=== PATIENT | male | born 2000 | race Caucasian/White ===

== ENCOUNTER 2019-07-03 16:32 | Emergency (ER) | payer OTHER ==
[~2019-07-03] VITALS: Ht 172.7 cm; Wt 63.5 kg
--- OUTSIDE RECORDS SUMMARY | ~2019-07-03 | XMS | Encounter Summary ---
Demographics + + + | Address | [address] | | | [place] [address] | + + + | Preferred Language | Unknown | + + + | Marital Status | Single | + + + | Buddhist Affiliation | NON | + + + | Race | White | + + + | Ethnic Group | Not or | + + + Author + + + | Author | [facility] | + + + | Organization | [facility] | + + + | Address | Unknown | + + + | Phone | Unavailable | + + + Support + + + + + | Name | Relationship | Address | Phone | + + + + + | Tasha Jordan | ECON | [address] | Unavailable | | | | [place] | | | | | [address] | | + + + + + Care Team Providers + +------+ + | Care Marketing Automation Manager Name | Role | Phone | + +------+ + PCP | Unavailable | + +------+ + Encounter Details +--------+ + + + + | Date | Type | Department | Care Team | Description | +--------+ + + + + | 07/30/ | Procedure - | UNKNOWN DEPARTMENT | Other, Faculty | ECHO (TEAGAN or TTE) | | 1998 | | [address] [facility] | [phone] | | | | Transcribed | [address] | | | | | | [place], [place] | | | | | | [address] | | | +--------+ + + + + Social History + +-------+ +--------+------+ | Tobacco Use | Types | Packs/Day | Years | Date | | | | | Used | | + +-------+ +--------+------+ | Never Assessed | | | | | + +-------+ +--------+------+ + + + | Sex Assigned at | Date Recorded | | | | + + + | Not on file | | + + + + + + + | Job Start Date | Occupation | Industry | + + + + | Not on file | Not on file | Not on file | + + + + + + + + | Travel History | Travel Start | Travel End | + + + + + + | No recent travel history available. | + + documented as of this encounter Progress Notes Other, Faculty - 1998 12:00 AM PDTAssociated Order(s): TRANSTHORACIC ECHOCARDIOGRAM, ADULT DATE: 98 MED REC NO: [id number] NAME: Anneliese JORDAN ECHOCARDIOGRAPHY REPORT BIRTHDATE: [birth year] CARDIAC QUERY: PREMIE/EVALUATE FOR PULMONARY HYPERTENTION/PATENT DUCTUS UNIT: [facility] STUDY NO: [id number] TAPE NO. [id number] REF. MD: STACEY HERNANDEZ BP: 55/37 FRAME NO. [id number]:[id number]:[id number] TECH: AF WT: 2.77 M-MODE:MM 2-D MEASUREMENT LVID (D)14.5 (S) 8.5 %FS 41 LA 11.5 IVS (D) 2.5 (S)3.5 AO 9.0 LVPW (D) 2.5 (S)3.5 DOPPLER:M/S PW CW MMHG PW CW MMHG RVIT 0.85 LVIT 0.75 RVOT 0.50 LVOT 0.60 MPA 0.70 0.75 ASAO AP 0.85 TR 3.90 60 ASAO SSN 1.05 DSAO 1.05 2D & DOPPLER INTERPRETATION 1. NORMAL CARDIAC ANATOMY. 2. 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 3. MILD TRICUSPID REGURGITATION AND PULMONARY INSUFFICIENCY. 4. PATENT FORAMEN OVALE. 5. NORMAL LEFT VENTRICULAR SIZE AND FUNCTION. 6. LIMITED SUPRA STERNAL NOTCH VIEWS THEREFORE CANNOT RULE OUT PATENT DUCTUS ARTERIOSUS OR ANOMALOUS PULMONARY VENOUS RETURN. MB VELMA BALLESTEROS M.D. documented in this encou nter Plan of Treatment Not on filedocumented as of this encounter Procedures + +--------+ + + + | Procedure Name | Priori | Date/Time | Associated Diagnosis | Comments | | | ty | | | | + +--------+ + + + | TRANSTHORACIC | | 1998 | | Results for this | | ECHOCARDIOGRAM, | | 12:00 AM | | procedure are in the | | ADULT | | PDT | | results section. | + +--------+ + + + documented in this encounter Results TRANSTHORACIC ECHOCARDIOGRAM, ADULT (1998 12:00 AM PDT) + + | Procedure Note | + + | Other, Faculty - 1998 12:00 AM PDT | | DATE: 98 | | MED REC NO: [id number] | | NAME: Anneliese JORDAN | | ECHOCARDIOGRAPHY REPORT BIRTHDATE: [birth year] | | | | CARDIAC QUERY: PREMIE/EVALUATE FOR PULMONARY HYPERTENTION/PATENT DUCTUS | | UNIT: [facility] | | STUDY NO: [id number] TAPE [place]. [id number] | | REF. MD: STACEY HERNANDEZ | | BP: RA 55/37 | | | | FRAME NO. [id number]:[id number]:[id number] TECH: AF WT: 2.77 | | | | | | M-MODE:MM 2-D MEASUREMENT | | | | LVID (D)14.5 (S) 8.5 %FS 41 LA 11.5 | | IVS (D) 2.5 (S)3.5 AO 9.0 | | LVPW (D) 2.5 (S)3.5 | | | | DOPPLER:M/S PW CW MMHG PW CW MMHG | | | | RVIT 0.85 LVIT 0.75 | | RVOT 0.50 LVOT 0.60 | | MPA 0.70 0.75 ASAO AP 0.85 | | TR 3.90 60 ASAO SSN 1.05 | | DSAO 1.05 | | | | 2D & DOPPLER INTERPRETATION | | | | 1. NORMAL CARDIAC ANATOMY. | | | | 2. PULMONARY HYPERTENSION WITH TRICUSPID REGURGITATION VELOCITIES | | SUGGESTING RIGHT VENTRICULAR PRESSURE SUPRASYSTEMIC, FLATTENED VENTRICULAR | | SEPTUM. | | | | 3. MILD TRICUSPID REGURGITATION AND PULMONARY INSUFFICIENCY. | | | | 4. PATENT FORAMEN OVALE. | | | | 5. NORMAL LEFT VENTRICULAR SIZE AND FUNCTION. | | | | 6. LIMITED SUPRA STERNAL NOTCH VIEWS THEREFORE CANNOT RULE OUT PATENT | | DUCTUS ARTERIOSUS OR ANOMALOUS PULMONARY VENOUS RETURN. | | | | | | MB | | | | VELMA BALLESTEROS M.D. | | | | | | | + + documented in this encounter Visit Diagnoses Not on filedocumented in this encounter"
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
--- OUTSIDE RECORDS SUMMARY | ~2019-07-03 | XMS | Encounter Summary ---
Demographics + + + | Address | [address] | | | [place] [address] | + + + | Preferred Language | Unknown | + + + | Marital Status | Single | + + + | Zoroastrianism Affiliation | NON | + + + | Race | White | + + + | Ethnic Group | Not or | + + + Author + + + | Author | [facility] | + + + | Organization | [facility] | + + + | Address | Unknown | + + + | Phone | Unavailable | + + + Support + + + + + | Name | Relationship | Address | Phone | + + + + + | Tasha Keane | ECON | [address] | Unavailable | | | | [place] | | | | | [address] | | + + + + + Care Team Providers + +------+ + | Care Bevel Polisher Name | Role | Phone | + +------+ + PCP | Unavailable | + +------+ + Encounter Details +--------+ + + + + | Date | Type | Department | Care Team | Description | +--------+ + + + + | 08/10/ | Results | [facility] [address] | Catrina Haines MD | | | 1998 | Only | Ishan Resendez | [address] | | | | | Brad | Laya Gibson [facility] | | | | | [facility], | [place] [address] | | | | | [address] [place] [address] | [phone] | | | | | [place], [place] | | | | | | [address] | | | | | | [phone] | | | +--------+ + + + [...] + + documented as of this encounter Plan of Treatment Not on filedocumented as of this encounter Procedures + +--------+ + + + | Procedure Name | Priori | Date/Time | Associated Diagnosis | Comments | | | ty | | | | + +--------+ + + + | US HEAD | Routin | 1998 | | Results for this | | | e | 10:10 AM | | procedure are in the | | | | PDT | | results section. | + +--------+ + + + documented in this encounter Results US HEAD (1998 10:10 AM PDT) + + + + + + | Component | Value | Ref Range | Performed | Pathologist | | | | | At | Signature | + + + + + + | US HEAD | Radiologist 1: KALE, | | | | | | STACEY VENTURA M.D.HEAD | | | | | | ULTRASOUND: 98. | | | | | | Dictated 98 | | | | | | FINDINGS: The cranial | | | | | | structures appear | | | | | | normal. The ventricles | | | | | | aresymmetric in size | | | | | | and configuration. The | | | | | | lateral ventricles | | | | | | measure0.19 and 0.17 cm | | | | | | on the right and left | | | | | | sides respectively. | | | | | | There isno obvious | | | | | | germinal matrix | | | | | | hemorrhage. The | | | | | | surrounding | | | | | | brainparenchyma is | | | | | | normal. There is no | | | | | | apparent extra-axial | | | | | | fluidcollection. | | | | | | IMPRESSION: Normal | | | | | | cranial ultrasound. No | | | | | | sonographic evidence of | | | | | | a germinalmatrix | | | | | | hemorrhage. END OF | | | | | | IMPRESSION: | | | | + + + + + + + + | Specimen | + + | | + + + +---------+ + + | Performing | Address | City/State/Zipcode | Phone Number | | Organization | | | | + +---------+ + + | [facility] | | | | | RADIOLOGY | | | | + +---------+ + + documented in this encounter Visit Diagnoses Not on filedocumented in this encounter"
--- OUTSIDE RECORDS SUMMARY | ~2019-07-03 | XMS | Encounter Summary ---
Demographics + + + | Address | [address] | | | [place] [address] | + + + | Preferred Language | Unknown | + + + | Marital Status | Single | + + + | Protestant Affiliation | NON | + + + [...] [place], [place] | | | | | [address] | | + + + + + Care Team Providers + +------+ + | Care Furniture Finisher Apprentice Name | Role | Phone | + [...] [address] | | | | | | [place] [address] | | +--------+ + + + + [...] | | + +---------+ + + | [facility] DEPARTMENT OF | | | | | RADIOLOGY | | | | + +---------+ + + documented in this encounter Visit Diagnoses Not on filedocumented in this encounter"
--- OUTSIDE RECORDS SUMMARY | ~2019-07-03 | XMS | Encounter Summary ---
Demographics + + + | Address | [address] | | | [place] [address] | + + + | Preferred Language | Unknown | + + + | Marital Status | Single | + + + | Pentecostal Affiliation | NON | + + + [...] [place], [place] | | | | | [address] | | + + + + + Care Team Providers + +------+ + | Care Chainstitch Sewing Machine Operator Name | Role | Phone | + [...] as of this encounter Discharge Summaries Interface, Spotlight Operator In - 02/20/2006 5:10 AM PST [place] [address] [address] [facility] MEDICAL SUMMARY OF HOSPITALIZATION Med Rec No: [id number] Admission Date: 2000 Name: Zeus Kline Discharge Date: 1998 STAFF PHYSICIAN: Mack Crouch M.D. PRINCIPAL FINAL DIAGNOSIS: PRINCIPAL PROCEDURE: REASON FOR ADMISSION: Zeus Keane is a 22-day-old male infant admitted to [facility] for care of depression due to maternal abruption. Zeus was delivered at [facility] by emergent section for abruption to a 39-year-old 7, para 5-1-1-6, Eyak-Tristanian female at approximately 35-6/7 weeks gestational age [...] are unmarried but partnered, and reside in [place], [place]. The family has been followed closely by [facility], particularly regarding parenting concerns. Tasha's oldest [...] 1998, and repeated on 1998, also passed. [place] Metabolic Screen: The initial screen was sent [...] smoking in the home, carseat safety, the mvsr-qv-gubll program, the importance of regular followup for [facility], the hepatitis B immunization importance, and the mixing of 24 kcal/oz milk. Each of the parents did attend the [facility]'s Baby Care classes on the day of discharge. Discharge Follow-up: Followup will be through the [facility] the day after discharge, 1998, at 1330 hours. The patient were advised regarding this appointment. The fax number is . Bob Vaz., Mack Crouch M.D. N.N.PDebbie/C.N.S. SC/sole A FAX: [facility] cc: documente d in this encounter Plan of Treatment Not on filedocumented as of this encounter Visit Diagnoses Not on filedocumented in this encounter"
--- OUTSIDE RECORDS SUMMARY | ~2019-07-03 | XMS | Encounter Summary ---
Demographics + + + | Address | [address] | | | [place] [address] | + + + | Preferred Language | Unknown | + + + | Marital Status | Single | + + + | Restorationist Affiliation | NON | + + + [...] [place], [place] | | | | | [address] | | + + + + + Care Team Providers + +------+ + | Care Core Rescuer Name | Role | Phone | + +------+ + PCP | Unavailable | + +------+ + Encounter Details +--------+ + + + + | Date | Type | Department | Care Team | Description | +--------+ + + + + | 07/29/ | Results | | Other, Faculty | | | 1998 | Only | | [phone] | | +--------+ + + + + [...] + + | CHEST, 1 VIEW, | Routin | 1998 | | Results for this | | PORTABLE | e | 8:45 AM | | procedure are in the | | | | PDT | | results section. | + +--------+ + + + | CHEST, 1 VIEW, | Routin | 1998 | | Results for this | | PORTABLE | e | 8:44 AM | | procedure are in the | | | | PDT | | results section. | + +--------+ + + + | CHEST, 1 VIEW, | Routin | 1998 | | Results for this | | PORTABLE | e | 8:18 AM | | procedure are in the | | | | PDT | | results section. | + +--------+ + + + | CHEST, 1 VIEW, | Routin | 1998 | | Results for this | | PORTABLE | e | 9:03 AM | | procedure are in the | | | | PDT | | results section. | + +--------+ + + + | CHEST, 1 VIEW, | Routin | 1998 | | Results for this | | PORTABLE | e | 8:37 AM | | procedure are in the | | | | PDT | | results section. | + +--------+ + + + | CHEST, 1 VIEW, | Routin | 1998 | | Results for this | | PORTABLE | e | 7:45 AM | | procedure are in the | | | | PDT | | results section. | + +--------+ + + + | CHEST, 1 VIEW, | Urgent | 1998 | | Results for this | | PORTABLE | | 5:23 PM | | procedure are in the | | | | PDT | | results section. | + +--------+ + + + | CHEST, 1 VIEW, | Routin | 1998 | | Results for this | | PORTABLE | e | 12:41 PM | | procedure are in the | | | | PDT | | results section. | + +--------+ + + + | CHEST, 1 VIEW, | Routin | 1998 | | Results for this | | PORTABLE | e | 8:28 AM | | procedure are in the | | | | PDT | | results section. | + +--------+ + + + | CHEST, 1 VIEW, | Routin | 1998 | | Results for this | | PORTABLE | e | 10:15 AM | | procedure are in the | | | | PDT | | results section. | + +--------+ + + + documented in this encounter Results CHEST, 1 VIEW, PORTABLE (1998 8:45 AM PDT) + + + + + + | Component | Value | Ref Range | Performed | Pathologist | | | | | At | Signature | + + + + + + | CHEST, 1 | Radiologist 1: HE, | | | | | GAURAV, | ALICIA Stiles, | | | | | PORTABLE | M.D.-Radiologist 2: | | | | | | CHINO BILL, | | | | | | M.D.SINGLE VIEW OF THE | | | | | | CHEST: 98 at | | | | | | 0848 hours. Dictated: | | | | | | 98 COMPARISON: | | | | | | Comparison is made with | | | | | | prior study of 98 | | | | | | at 0846hours. FINDINGS: | | | | | | In the interim, the | | | | | | endotracheal tube has | | | | | | been removed. | | | | | | Theumbilical artery | | | | | | catheter tip is at T7-8. | | | | | | The cardiac | | | | | | configurationis | | | | | | unchanged. There has | | | | | | been a slight increase | | | | | | in the fineinterstitial | | | | | | reticular pattern. | | | | | | There are no | | | | | | consolidations,effusions | | | | | | , or pneumothorax. | | | | | | IMPRESSION: 1. | | | | | | Increase in fine | | | | | | reticular pattern, may | | | | | | represent | | | | | | increasedinterstitial | | | | | | edema, or symmetric | | | | | | pneumonia. | | | | | | END OF IMPRESSION: | | | | + + + + + + + + | Specimen | + + | | + + + + + | Narrative | Performed At | + + + | Ordered michelle HUANG | | + + + + +---------+ + + | Performing | Address | City/State/Zipcode | Phone Number | | Organization | | | | + +---------+ + + | [facility] OF | | | | | RADIOLOGY | | | | + +---------+ + + CHEST, 1 VIEW, PORTABLE (1998 8:44 AM PDT) + + + + + [...] at | | | | | | 0800 hours. Dictated: | | | | | | 98 COMPARISON: | | | | | | Comparison is made with | | | | | | prior study of 98 | | | | | | at 0815hours. FINDINGS: | | | | | | The lungs are well | | | | | | inflated, but because of | | | | | | lordoticposition, the | | | | | | degree of inflation is | | | | | | somewhat difficult to | | | | | | appreciate.There are | | | | | | unchanged bilateral fine | | | | | | reticular nodular | | | | | | interstitialopacities. | | | | | | The heart is unchanged | | | | | | and normal. The | | | | | | endotracheal | | | | | | tubeterminates at T2. | | | | | | The umbilical venous | | | | | | line terminates just at | | | | | | thecavoatrial junction. | | | | | | The umbilical arterial | | | | | | line is not seen on | | | | | | thisradiograph. The | | | | | | upper abdomen appears | | | | | | normal. IMPRESSION: | | | | | | Unchanged fine | | | | | | interstitial opacities | | | | | | consistent with | | | | | | eitherpersistent edema | | | | | | or infection. END OF | | | | | | IMPRESSION: | | | | + + + + + + + + | Specimen | + + | | + + + + + | Narrative | Performed At | + + + | Ordered by MIKAELA TURK | | + + + + +---------+ + + | Performing | Address | City/State/Zipcode | Phone Number | | Organization | | | | + +---------+ + + | [facility] DEPARTMENT | | | | | RADIOLOGY | | | | + +---------+ + + CHEST, 1 VIEW, PORTABLE (1998 8:18 AM PDT) + + + + + + | Component | Value | Ref Range | Performed | Pathologist | | | | | At | Signature | + + + + + + | CHEST, 1 | Radiologist 1: HE, | | | | | GAURAV, | ALICIA Stiles M.D.CHEST ONE | | | | | PORTABLE | VIEW: 98 | | | | | | Dictated: 98 | | | | | | FINDINGS: Compared to | | | | | | 98, the | | | | | | endotracheal tube has | | | | | | beenwithdrawn and now | | | | | | terminates at T3-4, | | | | | | above the jenny. The | | | | | | cardiacsilhouette is | | | | | | normal. The lungs are | | | | | | well inflated with fine | | | | | | linearinterstitial | | | | | | opacities, essentially | | | | | | unchanged. The | | | | | | umbilical venousline | | | | | | terminates in the right | | | | | | atrium, and umbilical | | | | | | arterial line atT4. | | | | | | IMPRESSION: Unchanged | | | | | | mild interstitial edema | | | | | | versus pneumonia. | | | | | | Satisfactory position of | | | | | | tubes and lines. END | | | | | | OF IMPRESSION: END OF | | | | | | IMPRESSION: | | | | + + + + + + + + | Specimen | + + | | + + + + + | Narrative | Performed At | + + + | Ordered by LOLIS HOLDER | | + + + + +---------+ + + | Performing | Address | City/State/Zipcode | Phone Number | | Organization | | | | + +---------+ + + | [facility] DEPARTMENT OF | | | | | RADIOLOGY | | | | + +---------+ + + CHEST, 1 VIEW, PORTABLE (1998 9:03 AM PDT) + + + + + + | Component | Value | Ref Range | Performed | Pathologist | | | | | At | Signature | + + + + + + | CHEST, 1 | Radiologist 1: HE, | | | | | VIEW, | ALICIA Stiles M.D. PORTABLE | | | | | PORTABLE | ONE VIEW OF THE CHEST: | | | | | | 98 at 0903 hours. | | | | | | Dictated 98 | | | | | | COMPARISON: Comparison | | | | | | is made with prior study | | | | | | of 98 at | | | | | | 0836hours. FINDINGS: The | | | | | | lungs are well | | | | | | inflated. The fine | | | | | | reticular | | | | | | granularopacities are | | | | | | unchanged, bilaterally. | | | | | | The endotracheal tube | | | | | | terminatesjust at the | | | | | | orifice of the right | | | | | | main stem bronchus. | | | | | | The umbilicalline | | | | | | terminates just over the | | | | | | right atrium. The | | | | | | cardiac silhouette | | | | | | andmediastinum are | | | | | | normal. No other changes | | | | | | are seen. IMPRESSION: | | | | | | Deeply positioned | | | | | | endotracheal tube, just | | | | | | at the right main | | | | | | stembronchus level. | | | | | | Called Dr Osorio at | | | | | | time of dictation. 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 END OF | | | | | | IMPRESSION: | | | | + + + + + + + + | Specimen | + + | | + + + + + | Narrative | Performed At | + + + | Ordered by FABRICIO SOORIO | | + + + + +---------+ + + | Performing | Address | City/State/Zipcode | Phone Number | | Organization | | | | + +---------+ + + | [facility] DEPARTMENT OF | | | | | RADIOLOGY | | | | + +---------+ + + CHEST, 1 VIEW, PORTABLE (1998 8:37 AM PDT) + + + + + + | Component | Value | Ref Range | Performed | Pathologist | | | | | At | Signature | + + + + + + | CHEST, 1 | Radiologist 1: HE, | | | | | VIEW, | ALICIA tSiles, | | | | | PORTABLE | MMerly.-Radiologist 2: | | | | | | ALICIA CUTLER M.D. | | | | | | ONE VIEW OF THE CHEST: | | | | | | 98 at 0837 hours. | | | | | | Dictated 98 | | | | | | COMPARISON: Comparison | | | | | | is made with prior study | | | | | | of 98. FINDINGS: | | | | | | Again noted are finely | | | | | | granular linear | | | | | | opacities in bothlungs. | | | | | | There is a slight | | | | | | decrease in the | | | | | | lucencies at the medial | | | | | | rightlung base. There is | | | | | | no evidence of | | | | | | pneumothorax. The | | | | | | cardiothymiccontours are | | | | | | unchanged. An | | | | | | endotracheal tube tip | | | | | | projects over | | | | | | thethoracic inlet. The | | | | | | umbilical venous | | | | | | catheter remains in | | | | | | place in theright | | | | | | atrium. IMPRESSION: 1. | | | | | | No significant | | | | | | interval change in the | | | | | | bilateral | | | | | | granularinterstitial | | | | | | opacities. This could | | | | | | reflect hyaline membrane | | | | | | disease orneonatal | | | | | | pneumonia. 2. Slight | | | | | | decrease in the tiny | | | | | | lucencies of the medial | | | | | | right lungbase likely | | | | | | reflecting a decrease in | | | | | | the interstitial | | | | | | emphysema. END OF | | | | | | IMPRESSION: | | | | + + + + + + + + | Specimen | + + | | + + + + + | Narrative | Performed At | + + + | Ordered by STACEY HERNANDEZ P.H.D., M.D. | | + + + + +---------+ + + | Performing | Address | City/State/Zipcode | Phone Number | | Organization | | | | + +---------+ + + | [facility]MENT OF | | | | | RADIOLOGY | | | | + +---------+ + + CHEST, 1 VIEW, PORTABLE (1998 7:45 AM PDT) + + + + + + | Component | Value | Ref Range | Performed | Pathologist | | | | | At | Signature | + + + + + + | CHEST, 1 | Radiologist 1: HE, | | | | | VIEW, | ALICIA Stiles M.D.SINGLE | | | | | PORTABLE | VIEW OF THE CHEST: | | | | | | 98 at 0745 hours. | | | | | | Dictated on | | | | | | 98 COMPARISON: | | | | | | Comparison is made with | | | | | | prior study of 98 | | | | | | at 1723hours. FINDINGS: | | | | | | The left hemithorax was | | | | | | clipped laterally. | | | | | | There areunchanged | | | | | | fine granular opacities | | | | | | with some area of bubbly | | | | | | change inthe right | | | | | | medial base. | | | | | | Endotracheal tube | | | | | | terminates at | | | | | | T2-3,umbilical venous | | | | | | line at T6-7 and | | | | | | umbilical artery line at | | | | | | the lowerborder of L3. | | | | | | IMPRESSION: 1. | | | | | | Unchanged bilateral | | | | | | fine granular opacities | | | | | | consistent with | | | | | | edemaand/or surfactant | | | | | | deficiency disease. 2. | | | | | | Some bubbly appearance | | | | | | in the right medial | | | | | | lung base may | | | | | | representearly pulmonary | | | | | | interstitial emphysema. | | | | | | END OF IMPRESSION: | | | | + + + + + + + + | Specimen | + + | | + + + + + | Narrative | Performed At | + + + | Ordered by STACEY HERNANDEZ P.H.D., M.D. | | + + + + +---------+ + + | Performing | Address | City/State/Zipcode | Phone Number | | Organization | | | | + +---------+ + + | [facility] DEPARTMENT OF | | | | | RADIOLOGY | | | | + +---------+ + + CHEST, 1 VIEW, PORTABLE (1998 5:23 PM PDT) + + + + + + | Component | Value | Ref Range | Performed | Pathologist | | | | | At | Signature | + + + + + + | CHEST, 1 | Radiologist 1: HE, | | | | | Sushma NOLASCO, | | | | | PORTABLE | M.D.-Radiologist 2: | | | | | | JORGE MONTIEL V., | | | | | | M.D.PORTABLE CHEST: | | | | | | 98 at 1723 | | | | | | hours. Dictated: | | | | | | 98 COMPARISON: | | | | | | Comparison is made with | | | | | | prior study of 98. | | | | | | FINDINGS: Hazy ground | | | | | | glass opacities are | | | | | | identified bilaterally. | | | | | | Theleft costophrenic | | | | | | angle is excluded from | | | | | | the image. More | | | | | | cysticlucencies are | | | | | | present at the medial | | | | | | right lung base. | | | | | | Endotrachealtube tip | | | | | | projects over T3. An | | | | | | umbilical artery | | | | | | catheter tip | | | | | | projectsover L3. | | | | | | Umbilical venous | | | | | | catheter is within the | | | | | | right atrium. 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 END OF | | | | | | IMPRESSION: | | | | + + + + + + + + | Specimen | + + | | + + + + + | Narrative | Performed At | + + + | Ordered by STACEY HERNANDEZ P.H.D., M.D. | | + + + + +---------+ + + | Performing | Address | City/State/Zipcode | Phone Number | | Organization | | | | + +---------+ + + | [facility] DEPARTMENT OF | | | | | RADIOLOGY | | | | + +---------+ + + CHEST, 1 VIEW, PORTABLE (1998 12:41 PM PDT) + + + + + + | Component | Value | Ref Range | Performed | Pathologist | | | | | At | Signature | + + + + + + | CHEST, 1 | Radiologist 1: KALE, | | | | | VIEW, | STACEY VENTURA, | | | | | PORTABLE | M.D.-Radiologist 2: | | | | | | JORGE MONTIEL V., | | | | | | M.D.SINGLE VIEW OF THE | | | | | | CHEST: 98. | | | | | | Dictated 98 | | | | | | COMPARISON: Comparison | | | | | | is made with prior | | | | | | study of earlier the | | | | | | sameday. FINDINGS: The | | | | | | endotracheal tube tip | | | | | | remains in place with | | | | | | the tipapproximately 1.5 | | | | | | vertebral bodies above | | | | | | the level of the | | | | | | jenny.Umbilical venous | | | | | | catheter remains in | | | | | | place with the tip in | | | | | | rightatrium. Hazy | | | | | | opacity is present | | | | | | bilaterally without | | | | | | significantchange. | | | | | | There is no evidence | | | | | | of pneumothorax or | | | | | | pleural effusion.The | | | | | | heart size is stable. | | | | | | The umbilical artery | | | | | | catheter remains inplace | | | | | | with the tip projecting | | | | | | at the level of L3. | | | | | | IMPRESSION: No | | | | | | significant change in | | | | | | the bilateral hazy air | | | | | | space opacities. END | | | | | | OF IMPRESSION: | | | | + + + + + + + + | Specimen | + + | | + + + + + | Narrative | Performed At | + + + | Ordered by STACEY HERNANDEZ P.H.D., M.D. | | + + + + +---------+ + + | Performing | Address | City/State/Zipcode | Phone Number | | Organization | | | | + +---------+ + + | [facility] DEPARTMENT OF | | | | | RADIOLOGY | | | | + +---------+ + + CHEST, 1 VIEW, PORTABLE (1998 8:28 AM PDT) + + + + + + | Component | Value | Ref Range | Performed | Pathologist | | | | | At | Signature | + + + + + + | CHEST, 1 | Radiologist 1: KALE, | | | | | VIEW, | STACEY VENTURA M.D.SU[facility] | | | | | PORTABLE | PORTABLE CHEST: | | | | | | 98 at 0828 | | | | | | hours. Dictated: | | | | | | 98 COMPARISON: | | | | | | Comparison is made with | | | | | | prior study of 98. | | | | | | FINDINGS: The | | | | | | endotracheal tube | | | | | | terminates 0.8 cm above | | | | | | the jenny.The umbilical | | | | | | venous catheter tip | | | | | | appears to be in the | | | | | | right atrium.The lung | | | | | | volumes remain | | | | | | diminished. There are | | | | | | coarse reticularmarkings | | | | | | evident bilaterally | | | | | | with increased opacity | | | | | | in the rightperihilar | | | | | | and left lower lobe | | | | | | distribution. This may | | | | | | representpulmonary edema | | | | | | or infectious | | | | | | process. Hyaline | | | | | | membrane disease is a | | | | | | consideration in the | | | | | | setting ofprematurity. | | | | | | Clinical correlation | | | | | | recommended. | | | | + + + + + + + + | Specimen | + + | | + + + + + | Narrative | Performed At | + + + | Ordered by STACEY HERNANDEZ P.H.D., M.D. | | + + + + +---------+ + + | Performing | Address | City/State/Zipcode | Phone Number | | Organization | | | | + +---------+ + + | [facility] DEPARTMENT OF | | | | | RADIOLOGY | | | | + +---------+ + + CHEST, 1 VIEW, PORTABLE (1998 10:15 AM PDT) + + + + + + | Component | Value | Ref Range | Performed | Pathologist | | | | | At | Signature | + + + + + + | CHEST, 1 | Radiologist 1: HE, | | | | | GAURAV, | KAROL KENDRICK, | | | | | PORTABLE | BABY BOY | | | | | | | | | | | | THE | | | | | | FINDINGS AND | | | | | | INTERPRETATIONS OF | | | | | | THE:CHEST 1 PORTABLE, | | | | | | ACC# [id number], DONE ON | | | | | | 29-JUL-98 AT 10:15HAVE | | | | | | BEEN REPORTED ON | | | | | | THE:CHEST 1 PORTABLE, | | | | | | ACC# [id number], DONE ON | | | | | | 29-JUL-98 AT 08:51. | | | | + + + + + + + + | Specimen | + + | | + + + + + | Narrative | Performed At | + + + | Ordered by STACEY HERNANDEZ P.H.D., M.D. | | + + + + +---------+ + + | Performing | Address | City/State/Zipcode | Phone Number | | Organization | | | | + +---------+ + + | [facility]PARTMENT OF | | | | | RADIOLOGY | | | | + +---------+ + + documented in this encounter Visit Diagnoses Not on filedocumented in this encounter"
--- OUTSIDE RECORDS SUMMARY | ~2019-07-03 | XMS | Clinical Summary ---
Demographics + + + | Address | [address] | | | [place] [address] | + + + | Preferred Language [...] [place], [place] | | | | | [address] | | + + + + + Care Team Providers + +------+ + | Care Wood Turning Lathe Operator Name | Role | Phone | + +------+ + PCP | Unavailable | + +------+ + Source Comments [facility] is fully live on both [facility] Ambulatory and [facility] InPatient.[facility] Allergies Not on File Medications [...]
--- OUTSIDE RECORDS SUMMARY | ~2019-07-03 | XMS | Encounter Summary ---
Demographics + + + | Address | [address] | | | [place] [address] | + + + | Preferred Language | Unknown | + + + | Marital Status | Single | + + + | Hinduism Affiliation | NON | + + + | Race | White | + + + | Ethnic Group | Not or | + + + Author + + + | Author | [facility] | + + + | Organization | [facility] [...] [place] | | | | | [address] | | + + + + + Care Team Providers + +------+ + | Care Uc Architect Name | Role | Phone | + +------+ + PCP | Unavailable | + +------+ + Encounter Details +--------+ + + + + | Date | Type | Department | Care Team | Description | +--------+ + + + + | 08/10/ | Results | [facility] [address] | Catrina Haines MD | | | 1998 | Only | Ishan Resendez | [address] | | | | | Brad | Laya Gibson [facility] | | | | | [facility], | [place] [address] | | | | | [address] [place] [address] | [phone] | | | | | [place], [place] | | | | | | [address] | | | | | | [phone] | | | +--------+ + + + [...] | | + +---------+ + + | [facility] DEPARTMENT OF | | | | | RADIOLOGY | | | | + +---------+ + + documented in this encounter Visit Diagnoses Not on filedocumented in this encounter"
--- OUTSIDE RECORDS SUMMARY | ~2019-07-03 | XMS | Encounter Summary ---
Demographics + + + | Address | [address] | | | [place] [address] | + + + | Preferred Language | Unknown | + + + | Marital Status | Single | + + + | Adventism Affiliation | NON | + + + | Race | White | + + + | Ethnic Group | Not or | + + + Author + + + | Author | [facility] | + + + | Organization | [facility] | + + + | Address | Unknown | + + + | Phone | Unavailable | + + + Support + + + + + | Name | Relationship | Address | Phone | + + + + + | Tasha Keane | ECON | [address] | Unavailable | | | | [place] | | | | | [address] | | + + + + + Care Team Providers + +------+ + | Care [employer] Name | Role | Phone | + [...] [id number] | | | | | | [place], [place] | | | | | | [address] | | | | | | [phone] | | | +--------+ + + + [...] + + + + | SEND-OUT | [id number]. | | | | | DATE | | | | | + + + + + + | KIT NO. | [id number]. | | | | + + + + + + + + | Specimen | + + | | + + + + + + + | Performing | Address | City/State/Zipcode | Phone Number | | Organization | | | | + + + + + | [facility] | [address] | [place] [address] | | | PATHOLOGY | [address] [...] | + + + + + | [facility] | [address] | [place] [address] | | | PATHOLOGY | [address] [...] | + + + + + | [facility] | [address] | [place] [address] | | | PATHOLOGY | [address] [...] | + + + + + | [facility] | [address] | [place] [address] | | | PATHOLOGY | [address] [...] | + + + + + | [facility] | [address] | [place] [address] | | | PATHOLOGY | [address] [...] | + + + + + | [facility] | [address] | [place] [address] | | | PATHOLOGY | [address] [...] | + + + + + | [facility] | [address] | [place], [place] [address] | | | PATHOLOGY | [address] [...] | + + + + + | [facility] | [address] | [place] [address] | | | PATHOLOGY | [address] [...] | + + + + + | [facility] | [address] | [place] [address] | | | PATHOLOGY | [address] [...] | + + + + + | [facility] | [address] | [place] [address] | | | PATHOLOGY | [address] [...] | + + + + + | [facility] | [address] | [place] [address] | | | PATHOLOGY | [address] [...] | + + + + + | [facility] | [address] | [place] [address] | | | PATHOLOGY | [address] [...] | + + + + + | [facility] | [address] | [place] [address] | | | PATHOLOGY | [address] [...] | + + + + + | [facility] | [address] | [place] [address] | | | PATHOLOGY | [address] [...] | + + + + + | [facility] | [address] | [place] [address] | | | PATHOLOGY | [address] [...] | + + + + + | [facility] | [address] | [place] [address] | | | PATHOLOGY | [address] [...] | + + + + + | [facility] | [address] | [place] [address] | | | PATHOLOGY | [address] [...] | + + + + + | [facility] | [address] | [place] [address] | | | PATHOLOGY | [address] [...] | + + + + + | [facility] | [address] | [place] [address] | | | PATHOLOGY | [address] [...] | + + + + + | [facility] | [address] | [place] [address] | | | PATHOLOGY | [address] [...] | + + + + + | [facility] | [address] | [place] [address] | | | PATHOLOGY | [address] [...] | + + + + + | [facility] | [address] | [place] [address] | | | PATHOLOGY | [address] [...] | + + + + + | [facility] | [address] | [place] [address] | | | PATHOLOGY | [address] [...] | + + + + + | [facility] | [address] | [place] [address] | | | PATHOLOGY | [address] [...] | + + + + + | [facility] | [address] | [place] [address] | | | PATHOLOGY | [address] [...] | + + + + + | [facility] | [address] | [place] [address] | | | PATHOLOGY | [address] [...] | + + + + + | [facility] | [address] | [place] [address] | | | PATHOLOGY | [address] [...] | + + + + + | [facility] | [address] | [place] [address] | | | PATHOLOGY | [address] [...] | + + + + + | [facility] | [address] | [place] [address] | | | PATHOLOGY | [address] [...] | + + + + + | [facility] | [address] | [place] [address] | | | PATHOLOGY | [address] [...] | + + + + + | [facility] | [address] | [place] [address] | | | PATHOLOGY | [address] [...] | + + + + + | [facility] | [address] | [place] [address] | | | PATHOLOGY | [address] [...] + + + + | SEND-OUT | [id number]. | | | | | DATE | | | | | + + + + + + | KIT NO. | [id number]. | | | | + + + + + + + + | Specimen | + + | | + + + + + + + | Performing | Address | City/State/Zipcode | Phone Number | | Organization | | | | + + + + + | [facility] | [address] | [place] [address] | | | PATHOLOGY | [address] [...] | + + + + + | [facility] | [address] | [place] [address] | | | PATHOLOGY | [address] [...] | + + + + + | [facility] | [address] | [place] [address] | | | PATHOLOGY | [address] [...] | + + + + + | [facility] | [address] | [place] [address] | | | PATHOLOGY | [address] [...] | + + + + + | [facility] | [address] | [place] [address] | | | PATHOLOGY | [address] [...] | + + + + + | [facility] | [address] | [place] [address] | | | PATHOLOGY | [address] [...] | + + + + + | [facility] | [address] | [place] [address] | | | PATHOLOGY | [address] [...] | + + + + + | [facility] | [address] | [place] [address] | | | PATHOLOGY | [address] [...] | + + + + + | [facility] | [address] | [place] [address] | | | PATHOLOGY | [address] [...] | + + + + + | [facility] | [address] | [place] [address] | | | PATHOLOGY | [address] [...] | + + + + + | [facility] | [address] | [place] [address] | | | PATHOLOGY | [address] [...] | + + + + + | [facility] | [address] | [place] [address] | | | PATHOLOGY | [address] [...] | + + + + + | [facility] | [address] | [place] [address] | | | PATHOLOGY | [address] [...] | + + + + + | [facility] | [address] | [place] [address] | | | PATHOLOGY | [address] [...] OF | [address] | [place] [address] | | | PATHOLOGY | [address] [...] | + + + + + | [facility] | [address] | [place] [address] | | | PATHOLOGY | [address] [...] | + + + + + | [facility] | [address] | [place] [address] | | | PATHOLOGY | [address] [...] DEPARTMENT OF | [address] | [place] [address] | | | PATHOLOGY | [address] [...] | + + + + + | [facility] | [address] | [place] [address] | | | PATHOLOGY | [address] [...] | + + + + + | [facility] | [address] | [place] [address] | | | PATHOLOGY | [address] [...] | + + + + + | [facility] | [address] | [place] [address] | | | PATHOLOGY | [address] [...] | + + + + + | [facility] | [address] | [place] [address] | | | PATHOLOGY | [address] [...] | + + + + + | [facility] | [address] | [place] [address] | | | PATHOLOGY | [address] [...] | + + + + + | [facility] | [address] | [place] [address] | | | PATHOLOGY | [address] [...] | + + + + + | [facility] | [address] | [place] [address] | | | PATHOLOGY | [address] [...] | + + + + + | [facility] | [address] | [place] [address] | | | PATHOLOGY | [address] [...] | + + + + + | [facility] | [address] | [place] [address] | | | PATHOLOGY | [address] [...] | + + + + + | [facility] | [address] | [place] [address] | | | PATHOLOGY | [address] [...] | + + + + + | [facility] | [address] | [place] [address] | | | PATHOLOGY | [address] [...] | + + + + + | [facility] | [address] | [place] [address] | | | PATHOLOGY | [address] [...] | + + + + + | [facility] | [address] | [place] [address] | | | PATHOLOGY | [address] [...] | + + + + + | [facility] | [address] | [place] [address] | | | PATHOLOGY | [address] [...] | + + + + + | [facility] | [address] | [place] [address] | | | PATHOLOGY | [address] [...] | + + + + + | [facility] | [address] | [place] [address] | | | PATHOLOGY | [address] [...] | + + + + + | [facility] | [address] | [place] [address] | | | PATHOLOGY | [address] [...] | + + + + + | [facility] | [address] | [place] [address] | | | PATHOLOGY | [address] | | | + + + [...] | + + + + + | [facility] | [address] | [place] [address] | | | PATHOLOGY | [address] [...] | + + + + + | [facility] | [address] | [place] [address] | | | PATHOLOGY | [address] [...] | + + + + + | [facility] | [address] | [place] [address] | | | PATHOLOGY | [address] [...] | + + + + + | [facility] | [address] | [place] [address] | | | PATHOLOGY | [address] [...] | + + + + + | [facility] | [address] | [place] [address] | | | PATHOLOGY | [address] [...] | + + + + + | [facility] | [address] | [place] [address] | | | PATHOLOGY | [address] [...] Re | | | | | | [address] | | | | + + + + + + + + | Specimen | + + | | + + + + + + + | Performing | Address | City/State/Zipcode | Phone Number | | Organization | | | | + + + + + | [facility] | [address] | [place] [address] | | | PATHOLOGY | [address] [...] | + + + + + | [facility] | [address] | [place] [address] | | | PATHOLOGY | [address] [...] | + + + + + | [facility] | [address] | [place] [address] | | | PATHOLOGY | [address] [...] | + + + + + | [facility] | [address] | [place] [address] | | | PATHOLOGY | [address] | | | + + + + + documented in this encounter Visit Diagnoses Not on filedocumented in this encounter
--- OUTSIDE RECORDS SUMMARY | ~2019-07-03 | XMS | Encounter Summary ---
Demographics + + + | Address | [address] | | | [place] [address] | + + + | Preferred Language | Unknown | + + + | Marital Status | Single | + + + | Judaism Affiliation | NON | + + + [...] [place], [place] | | | | | [address] | | + + + + + Care Team Providers + +------+ + | Care Chemical Mixer Name | Role | Phone | + +------+ + PCP | Unavailable | + +------+ + Encounter Details +--------+ + + + + | Date | Type | Department | Care Team | Description | +--------+ + + + + | 07/29/ | Results | | Other, Faculty | | | 1998 | Only | | [phone] | | +--------+ + + + + [...] | | + +---------+ + + | [facility] | | | | | [...] | | + +---------+ + + | [facility] OF | | | | [...] | | + +---------+ + + | [facility] OF | | | | [...] | | | | | | ALICIA CTULER M.D. | | | | | | [...] + + + | Ordered by STACEY HRENANDEZ P.H.D., M.D. | | + + + + +---------+ + + | Performing | Address | City/State/Zipcode | Phone Number | | Organization | | | | + +---------+ + + | [facility] | | | | [...] | | + +---------+ + + | [facility] | | | | [...] | | + +---------+ + + | [facility] | | | | [...] | | + +---------+ + + | [facility] OF | | | | [...] | | | | | | ACC# [id number], DONE ON | | | | | | 29-JUL-98 AT 10:15HAVE | | | | | | BEEN REPORTED ON | | | | | | THE:CHEST 1 PORTABLE, | | | | | | ACC# [id number], DONE ON | | | | | [...]
--- OUTSIDE RECORDS SUMMARY | ~2019-07-03 | XMS | Clinical Summary ---
Demographics + + + | Address | [address] | | | [place] [address] | + + + | Preferred Language | Unknown | + + + | Marital Status | Single | + + + | Bahai Affiliation | NON | + + + [...] [place], [place] | | | | | [address] | | + + + + + Care Team Providers + +------+ + | Care Real Estate Professional Name | Role | Phone | + +------+ + PCP | Unavailable | + +------+ + Source Comments YOUNG is fully live on both [facility] Ambulatory and [facility] InPatient.[facility] Allergies Not on File Medications [...]
--- OUTSIDE RECORDS SUMMARY | ~2019-07-03 | XMS | Encounter Summary ---
Demographics + + + | Address | [address] | | | [place] [address] | + + + | Preferred Language | Unknown | + + + | Marital Status | Single | + + + | Congregational Affiliation | NON | + + + [...] [place], [place] | | | | | [address] | | + + + + + Care Team Providers + +------+ + | Care Director Of Premium Seat Sales Name | Role | Phone | + [...] [address] | | | | | | [place] [address] | | +--------+ + + + + [...] | | + +---------+ + + | [facility] DEPARTMENT OF | | | | | RADIOLOGY | | | | + +---------+ + + documented in this encounter Visit Diagnoses Not on filedocumented in this encounter"
--- OUTSIDE RECORDS SUMMARY | ~2019-07-03 | XMS | Encounter Summary ---
Demographics + + + | Address | [address] | | | [place] [address] | + + + | Preferred Language | Unknown | + + + | Marital Status | Single | + + + | Scientology Affiliation | NON | + + + | Race | White | + + + | Ethnic Group | Not or | + + + Author + + + | Author | [facility] | + + + | Organization | [facility] | + + + | Address | Unknown | + + + | Phone | Unavailable | + + + Support + + + + + | Name | Relationship | Address | Phone | + + + + + | Tasha Jordan | ECON | [address] | Unavailable | | | | [place] | | | | | [address] | | + + + + + Care Team Providers + +------+ + | Care Cosmetic Sales Assistant Name | Role | Phone | + +------+ + PCP | Unavailable | + +------+ + Encounter Details +--------+ + + + + | Date | Type | Department | Care Team | Description | +--------+ + + + + | 07/30/ | Procedure - | UNKNOWN DEPARTMENT | Other, Faculty | ECHO (TEAGAN or TTE) | | 1998 | | [address] [facility] | [phone] | | | | Transcribed | [address] | | | | | | [place], [place] | | | | | | [address] | | | +--------+ + + + [...] ECHOCARDIOGRAM, ADULT DATE: [birth year] MED REC NO: [id number] NAME: Anneliese JORDAN ECHOCARDIOGRAPHY REPORT BIRTHDATE: [birth year] CARDIAC QUERY: PREMIE/EVALUATE FOR PULMONARY HYPERTENTION/PATENT DUCTUS UNIT: [facility] STUDY NO: [id number] TAPE NO. [id number] REF. [...] DATE: [birth year] | | MED REC NO: [id number] | | NAME: Anneliese JORDAN | | ECHOCARDIOGRAPHY REPORT BIRTHDATE: [birth year] | | | | CARDIAC QUERY: PREMIE/EVALUATE FOR PULMONARY HYPERTENTION/PATENT DUCTUS | | UNIT: [facility] | | STUDY NO: [id number] TAPE NO. [...]
--- OUTSIDE RECORDS SUMMARY | ~2019-07-03 | XMS | Encounter Summary ---
Demographics + + + | Address | [address] | | | [place] [address] | + + + | Preferred Language | Unknown | + + + | Marital Status | Single | + + + | Judaism Affiliation | NON | + + + | Race | White | + + + | Ethnic Group | Not or | + + + Author + + + | Author | [facility] | + + + | Organization | [facility] | + + + | Address | Unknown | + + + | Phone | Unavailable | + + + Support + + + + + | Name | Relationship | Address | Phone | + + + + + | Tasha Keane | ECON | [address] | Unavailable | | | | [place] | | | | | [address] | | + + + + + Care Team Providers + +------+ + | Care Shot Peen Operator Name | Role | Phone | [...] [id number] | | | | | | [place], [place] | | | | | | [address] | | | | | | [phone] | | | +--------+ + + + [...] + + + + | SEND-OUT | [id number]. | | | | | DATE | | | | | + + + + + + | KIT NO. | [id number]. | | | | + + + + + + + + | Specimen | + + | | + + + + + + + | Performing | Address | City/State/Zipcode | Phone Number | | Organization | | | | + + + + + | [facility] | [address] | [place] [address] | | | PATHOLOGY | [address] [...] | + + + + + | [facility] | [address] | [place] [address] | | | PATHOLOGY | [address] [...] | + + + + + | [facility] | [address] | [place] [address] | | | PATHOLOGY | [address] [...] | + + + + + | [facility] | [address] | [place] [address] | | | PATHOLOGY | [address] [...] | + + + + + | [facility] | [address] | [place] [address] | | | PATHOLOGY | [address] [...] | + + + + + | [facility] | [address] | [place] [address] | | | PATHOLOGY | [address] [...] | + + + + + | [facility] | [address] | [place], [place] [address] | | | PATHOLOGY | [address] [...] | + + + + + | [facility] | [address] | [place] [address] | | | PATHOLOGY | [address] [...] | + + + + + | [facility] | [address] | [place] [address] | | | PATHOLOGY | [address] [...] | + + + + + | [facility] | [address] | [place] [address] | | | PATHOLOGY | [address] [...] | + + + + + | [facility] | [address] | [place] [address] | | | PATHOLOGY | [address] [...] | + + + + + | [facility] | [address] | [place] [address] | | | PATHOLOGY | [address] [...] | + + + + + | [facility] | [address] | [place] [address] | | | PATHOLOGY | [address] [...] | + + + + + | [facility] | [address] | [place] [address] | | | PATHOLOGY | [address] [...] | + + + + + | [facility] | [address] | [place] [address] | | | PATHOLOGY | [address] [...] | + + + + + | [facility] | [address] | [place] [address] | | | PATHOLOGY | [address] [...] | + + + + + | [facility] | [address] | [place] [address] | | | PATHOLOGY | [address] [...] | + + + + + | [facility] | [address] | [place] [address] | | | PATHOLOGY | [address] [...] | + + + + + | [facility] | [address] | [place] [address] | | | PATHOLOGY | [address] [...] | + + + + + | [facility] | [address] | [place] [address] | | | PATHOLOGY | [address] [...] | + + + + + | [facility] | [address] | [place] [address] | | | PATHOLOGY | [address] [...] | + + + + + | [facility] | [address] | [place] [address] | | | PATHOLOGY | [address] [...] | + + + + + | [facility] | [address] | [place] [address] | | | PATHOLOGY | [address] [...] | + + + + + | [facility] | [address] | [place] [address] | | | PATHOLOGY | [address] [...] | + + + + + | [facility] | [address] | [place] [address] | | | PATHOLOGY | [address] [...] | + + + + + | [facility] | [address] | [place] [address] | | | PATHOLOGY | [address] [...] | + + + + + | [facility] | [address] | [place] [address] | | | PATHOLOGY | [address] [...] | + + + + + | [facility] | [address] | [place] [address] | | | PATHOLOGY | [address] [...] | + + + + + | [facility] | [address] | [place] [address] | | | PATHOLOGY | [address] [...] | + + + + + | [facility] | [address] | [place] [address] | | | PATHOLOGY | [address] [...] | + + + + + | [facility] | [address] | [place] [address] | | | PATHOLOGY | [address] [...] | + + + + + | [facility] | [address] | [place] [address] | | | PATHOLOGY | [address] [...] + + + + | SEND-OUT | 03464. | | | | | DATE | | | | | + + + + + + | KIT NO. | [id number]. | | | | + + + + + + + + | Specimen | + + | | + + + + + + + | Performing | Address | City/State/Zipcode | Phone Number | | Organization | | | | + + + + + | [facility] | [address] | [place] [address] | | | PATHOLOGY | [address] [...] | + + + + + | [facility] | [address] | [place] [address] | | | PATHOLOGY | [address] [...] | + + + + + | [facility] | [address] | [place] [address] | | | PATHOLOGY | [address] [...] | + + + + + | [facility] | [address] | [place] [address] | | | PATHOLOGY | [address] [...] | + + + + + | [facility] | [address] | [place] [address] | | | PATHOLOGY | [address] [...] | + + + + + | [facility] | [address] | [place] [address] | | | PATHOLOGY | [address] [...] | + + + + + | [facility] | [address] | [place] [address] | | | PATHOLOGY | [address] [...] | + + + + + | [facility] | [address] | [place] [address] | | | PATHOLOGY | [address] [...] | + + + + + | [facility] | [address] | [place] [address] | | | PATHOLOGY | [address] [...] | + + + + + | [facility] | [address] | [place] [address] | | | PATHOLOGY | [address] [...] | + + + + + | [facility] | [address] | [place] [address] | | | PATHOLOGY | [address] [...] | + + + + + | [facility] | [address] | [place] [address] | | | PATHOLOGY | [address] [...] | + + + + + | [facility] | [address] | [place] [address] | | | PATHOLOGY | [address] [...] | + + + + + | [facility] | [address] | [place] [address] | | | PATHOLOGY | [address] [...] OF | [address] | [place] [address] | | | PATHOLOGY | [address] [...] | + + + + + | [facility] | [address] | [place] [address] | | | PATHOLOGY | [address] [...] | + + + + + | [facility] | [address] | [place] [address] | | | PATHOLOGY | [address] [...] DEPARTMENT OF | [address] | [place] [address] | | | PATHOLOGY | [address] [...] | + + + + + | [facility] | [address] | [place] [address] | | | PATHOLOGY | [address] [...] | + + + + + | [facility] | [address] | [place] [address] | | | PATHOLOGY | [address] [...] | + + + + + | [facility] | [address] | [place] [address] | | | PATHOLOGY | [address] [...] | + + + + + | [facility] | [address] | [place] [address] | | | PATHOLOGY | [address] [...] | + + + + + | [facility] | [address] | [place] [address] | | | PATHOLOGY | [address] [...] | + + + + + | [facility] | [address] | [place] [address] | | | PATHOLOGY | [address] [...] | + + + + + | [facility] | [address] | [place] [address] | | | PATHOLOGY | [address] [...] | + + + + + | [facility] | [address] | [place] [address] | | | PATHOLOGY | [address] [...] | + + + + + | [facility] | [address] | [place] [address] | | | PATHOLOGY | [address] [...] | + + + + + | [facility] | [address] | [place] [address] | | | PATHOLOGY | [address] [...] | + + + + + | [facility] | [address] | [place] [address] | | | PATHOLOGY | [address] [...] | + + + + + | [facility] | [address] | [place] [address] | | | PATHOLOGY | [address] [...] | + + + + + | [facility] | [address] | [place] [address] | | | PATHOLOGY | [address] [...] | + + + + + | [facility] | [address] | [place] [address] | | | PATHOLOGY | [address] [...] | + + + + + | [facility] | [address] | [place] [address] | | | PATHOLOGY | [address] [...] | + + + + + | [facility] | [address] | [place] [address] | | | PATHOLOGY | [address] [...] | + + + + + | [facility] | [address] | [place] [address] | | | PATHOLOGY | [address] [...] | + + + + + | [facility] | [address] | [place] [address] | | | PATHOLOGY | [address] [...] | + + + + + | [facility] | [address] | [place] [address] | | | PATHOLOGY | [address] [...] | + + + + + | [facility] | [address] | [place] [address] | | | PATHOLOGY | [address] [...] | + + + + + | [facility] | [address] | [place] [address] | | | PATHOLOGY | [address] [...] | + + + + + | [facility] | [address] | [place] [address] | | | PATHOLOGY | [address] [...] | + + + + + | [facility] | [address] | [place] [address] | | | PATHOLOGY | [address] [...] | + + + + + | [facility] | [address] | [place] [address] | | | PATHOLOGY | [address] [...] Re | | | | | | [id number] | | | | + + + + + + + + | Specimen | + + | | + + + + + + + | Performing | Address | City/State/Zipcode | Phone Number | | Organization | | | | + + + + + | [facility] | [address] | [place] [address] | | | PATHOLOGY | [address] [...] | + + + + + | [facility] | [address] | [place] [address] | | | PATHOLOGY | [address] [...] | + + + + + | [facility] | [address] | [place] [address] | | | PATHOLOGY | [address] [...] | + + + + + | [facility] | [address] | [place] [address] | | | PATHOLOGY | [address] | | | + + + + + documented in this encounter Visit Diagnoses Not on filedocumented in this encounter
== END 2019-07-03 17:09 | disposition home or self-care (01) ==
LOC: ED 16:32
DX: F22 Delusional disorders (principal); R20.2 Paresthesia of skin; F17.200 Nicotine dependence, unspecified, uncomplicated
CPT/HCPCS: 99283

== ENCOUNTER 2019-07-04 11:59 | Emergency (ER) | payer OTHER ==
[~2019-07-04] VITALS: Ht 172.7 cm; Wt 63.5 kg
--- OUTSIDE RECORDS SUMMARY | ~2019-07-04 | XMS | Encounter Summary ---
Demographics + + + | Address | [address] | | | [place] [address] | + + + | Preferred Language | Unknown | + + + | Marital Status | Single | + + + | Mormon Affiliation | NON | + + + | Race | White | + + + | Ethnic Group | Not or | + + + Author + + + | Author | [facility] | + + + | Organization | [facility] | + + + | Address | Unknown | + + + | Phone | Unavailable | + + + Support + + + + + | Name | Relationship | Address | Phone | + + + + + | Tasha Jordan | ECON | [address] | Unavailable | | | | [place] | | | | | [address] | | + + + + + Care Team Providers + +------+ + | Care History Tutor Name | Role | Phone | + +------+ + PCP | Unavailable | + +------+ + Encounter Details +--------+ + + + + | Date | Type | Department | Care Team | Description | +--------+ + + + + | 07/30/ | Procedure - | UNKNOWN DEPARTMENT | Other, Faculty | ECHO (TEAGAN or TTE) | | 1998 | | [address] [facility] | [phone] | | | | Transcribed | [address] | | | | | | [place], [place] | | | | | | [address] | | | +--------+ + + + [...] ECHOCARDIOGRAM, ADULT DATE: 98 MED REC NO: [id number] NAME: Anneliese JORDAN ECHOCARDIOGRAPHY REPORT BIRTHDATE: [birth year] CARDIAC QUERY: PREMIE/EVALUATE FOR PULMONARY HYPERTENTION/PATENT DUCTUS UNIT: [facility] STUDY NO: [id number] TAPE NO. [id number] REF. [...] DATE: [birth year] | | MED REC NO: [id number] | | NAME: Anneliese JORDAN | | ECHOCARDIOGRAPHY REPORT BIRTHDATE: [birth year] | | | | CARDIAC QUERY: PREMIE/EVALUATE FOR PULMONARY HYPERTENTION/PATENT DUCTUS | | UNIT: [facility] | | STUDY NO: [id number] TAPE NO. [...]
--- OUTSIDE RECORDS SUMMARY | ~2019-07-04 | XMS | Encounter Summary ---
Demographics + + + | Address | [address] | | | [place] [address] | + + + | Preferred Language | Unknown | + + + | Marital Status | Single | + + + | Advent Affiliation | NON | + + + [...] [place], [place] | | | | | [address] | | + + + + + Care Team Providers + +------+ + | Care Personal Driver Name | Role | Phone | + [...] as of this encounter Discharge Summaries Interface, Motor Coach Operator In - 02/20/2006 5:10 AM PST [place] [address] [address] [facility] MEDICAL SUMMARY OF HOSPITALIZATION Med Rec No: [id number] Admission Date: 2000 Name: Zeus Kline Discharge Date: 2000 STAFF PHYSICIAN: Mack Crouch M.D. PRINCIPAL FINAL DIAGNOSIS: PRINCIPAL PROCEDURE: REASON FOR ADMISSION: Zeus Keane is a 22-day-old male infant admitted to [facility] for care of depression due to maternal abruption. Zeus was delivered at [facility] by emergent section for abruption to a 39-year-old 7, para 5-1-1-6, [place] female at approximately 35-6/7 weeks gestational age [...] Rule Out Congenital Heart Disease: Due to Zesu's cardiovascular and respiratory compromise, an echocardiogram was done to rule out congenital heart disease. The ultrasound revealed normal structures of the heart but evidence of persistent pulmonary hypertension. Congential heart disease was ruled out. Social: The parents are Tasha Keane and Vidal Kline, each with heritage. They are unmarried but partnered, and reside in [place], [place]. The family has been followed closely by [facility], particularly regarding parenting concerns. Tasha's oldest two children are in the Agency's custody. Tasha's urine drug screen has been positive twice, the first date is uncertain at the time of this report, the second date was during her hospitalization at [facility]. Zeus's urine drug screen was negative. Feeding: [...] 1998, and repeated on 1998, also passed. [place] Metabolic Screen: The initial screen was sent [...] smoking in the home, carseat safety, the [id number]-[id number] program, the importance of regular followup for [facility], the hepatitis B immunization importance, and the mixing of 24 kcal/oz milk. Each of the parents did attend the [facility]'s Baby Care classes on the day of discharge. Discharge Follow-up: Followup will be through the [facility] the day after discharge, 1998, at 1330 hours. The patient were advised regarding this appointment. The fax number is . Bob Vaz., Mack Crouch M.D. N.N.PDebbie/C.N.S. SC/sole A FAX: [facility] cc: documente d in this encounter Plan of Treatment Not on filedocumented as of this encounter Visit Diagnoses Not on filedocumented in this encounter"
--- OUTSIDE RECORDS SUMMARY | ~2019-07-04 | XMS | Encounter Summary ---
Demographics + + + | Address | [address] | | | [place] [address] | + + + | Preferred Language | Unknown | + + + | Marital Status | Single | + + + | Mu-Ism Affiliation | NON | + + + | Race | White | + + + | Ethnic Group | Not or | + + + Author + + + | Author | [facility] | + + + | Organization | [facility] | + + + | Address | Unknown | + + + | Phone | Unavailable | + + + Support + + + + + | Name | Relationship | Address | Phone | + + + + + | Tasha Keane | ECON | [address] | Unavailable | | | | [place] | | | | | [address] | | + + + + + Care Team Providers + +------+ + | Care Parts Analyst Name | Role | Phone | + +------+ + PCP | Unavailable | + +------+ + Encounter Details +--------+ + + + + | Date | Type | Department | Care Team | Description | +--------+ + + + + | 08/10/ | Results | [facility] [address] | Catrina Haines MD | | | 1998 | Only | Ishan Resendez | [address] | | | | | Brad | Laya [facility] | | | | | [facility], | [place] [address] | | | | | [address] [place] [address] | [phone] | | | | | [place], [place] | | | | | | [address] | | | | | | [phone] | | | +--------+ + + + [...] | | + +---------+ + + | [facility] DEPARTMENT OF | | | | | RADIOLOGY | | | | + +---------+ + + documented in this encounter Visit Diagnoses Not on filedocumented in this encounter"
--- OUTSIDE RECORDS SUMMARY | ~2019-07-04 | XMS | Encounter Summary ---
Demographics + + + | Address | [address] | | | [place] [address] | + + + | Preferred Language | Unknown | + + + | Marital Status | Single | + + + | Sabianist Affiliation | NON | + + + [...] [place], [place] | | | | | [address] | | + + + + + Care Team Providers + +------+ + | Care Vehicle Modification Technician Name | Role | Phone | + +------+ + PCP | Unavailable | + +------+ + Encounter Details +--------+ + + + + | Date | Type | Department | Care Team | Description | +--------+ + + + + | 07/29/ | Results | | Rodriguez, | | | 1998 | Only | | [address] | | | | | | [address] | | | | | | [place] [address] | | +--------+ + + + + [...] | + +--------+ + + + | CHEST, 1 VIEW, | Urgent | 1998 | | Results for this | | PORTABLE | | 8:51 AM | | procedure are in the | | | | PDT | | results section. | + +--------+ + + + documented in this encounter Results CHEST, 1 VIEW, PORTABLE (1998 8:51 AM PDT) + + + + + + | Component | Value | Ref Range | Performed | Pathologist | | | | | At | Signature | + + + + + + | CHEST, 1 | Radiologist 1: HE, | | | | | GAURAV, | ALICIA Stiles M.D.PORTABLE | | | | | PORTABLE | CHEST: 98 at | | | | | | 0852 hours. Dictated: | | | | | | 98 FINDINGS: There | | | | | | are no comparison | | | | | | films. The lungs are | | | | | | underinflated.There are | | | | | | coarse reticulogranular | | | | | | opacities throughout | | | | | | both lungs andcentral | | | | | | air bronchograms. The | | | | | | heart borders to the | | | | | | extent seen appearto | | | | | | have a normal | | | | | | configuration. An | | | | | | endotracheal tube is | | | | | | presentterminating at | | | | | | the thoracic inlet. An | | | | | | umbilical venous line | | | | | | ispresent which | | | | | | terminates at the T4 | | | | | | level. No pleural | | | | | | fluid is seen.The | | | | | | osseous and soft tissue | | | | | | structures are normal. 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 Theumbilical | | | | | | venous catheter is | | | | | | elevated in position. | | | | | | CHEST ONE VIEW: | | | | | | 98 at 1013 | | | | | | hours. Dictated: | | | | | | 98 FINDINGS: The | | | | | | lungs continue to have a | | | | | | coarse | | | | | | reticulogranularappearan | | | | | | ce, slightly worse than | | | | | | on the previous | | | | | | examination. | | | | | | Theendotracheal tube | | | | | | terminates at C5-6. | | | | | | The patient is rotated | | | | | | towardthe left, which | | | | | | displaces the heart and | | | | | | the position of the | | | | | | umbilicalvenous line | | | | | | toward the same side. | | | | | | The umbilical venous | | | | | | lineterminates unchanged | | | | | | at the T3-4 level. | | | | | | The abdomen is | | | | | | alsovisualized and shows | | | | | | a normal distribution | | | | | | of bowel gas for the | | | | | | firstday of life. An | | | | | | umbilical arterial line | | | | | | is present terminating | | | | | | at thelower border of | | | | | | L2. 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 Endotracheal | | | | | | tube, umbilical venous | | | | | | line, and umbilical | | | | | | arterial linesare high | | | | | | in position. Line | | | | | | positions discussed with | | | | | | Dr Osorio at the time | | | | | | of dictation. END OF | | | | | | IMPRESSION: END OF | | | | | | IMPRESSION: | | | | + + + + + + + + | Specimen | + + | | + + + +---------+ + + | Performing | Address | City/State/Zipcode | Phone Number | | Organization | | | | + +---------+ + + | [facility] DEPARTMENT OF | | | | | RADIOLOGY | | | | + +---------+ + + documented in this encounter Visit Diagnoses Not on filedocumented in this encounter"
--- OUTSIDE RECORDS SUMMARY | ~2019-07-04 | XMS | Encounter Summary ---
Demographics + + + | Address | [address] | | | [place] [address] | + + + | Preferred Language | Unknown | + + + | Marital Status | Single | + + + | Mormonism Affiliation | NON | + + + | Race | White | + + + | Ethnic Group | Not or | + + + Author + + + | Author | [facility] | + + + | Organization | [facility] | + + + | Address | Unknown | + + + | Phone | Unavailable | + + + Support + + + + + | Name | Relationship | Address | Phone | + + + + + | Tasha Jordan | ECON | [address] | Unavailable | | | | [place] | | | | | [address] | | + + + + + Care Team Providers + +------+ + | Care City Carrier Assistant Name | Role | Phone | + +------+ + PCP | Unavailable | + +------+ + Encounter Details +--------+ + + + + | Date | Type | Department | Care Team | Description | +--------+ + + + + | 07/30/ | Procedure - | UNKNOWN DEPARTMENT | Other, Faculty | ECHO (TEAGAN or TTE) | | 1998 | | [address] [facility] | [phone] | | | | Transcribed | [address] | | | | | | [place], [place] | | | | | | [address] | | | +--------+ + + + [...] ECHOCARDIOGRAM, ADULT DATE: 98 MED REC NO: [id number] NAME: Anneliese JORDAN ECHOCARDIOGRAPHY REPORT BIRTHDATE: [birth year] CARDIAC QUERY: PREMIE/EVALUATE FOR PULMONARY HYPERTENTION/PATENT DUCTUS UNIT: [facility] STUDY NO: [id number] TAPE NO. [id number] REF. [...] DATE: 98 | | MED REC NO: [id number] | | NAME: Anneliese JORDAN | | ECHOCARDIOGRAPHY REPORT BIRTHDATE: [birth year] | | | | CARDIAC QUERY: PREMIE/EVALUATE FOR PULMONARY HYPERTENTION/PATENT DUCTUS | | UNIT: [facility] | | STUDY NO: [id number] TAPE NO. [...]
--- OUTSIDE RECORDS SUMMARY | ~2019-07-04 | XMS | Clinical Summary ---
Demographics + + + | Address | [address] | | | [place] [address] | + + + | Preferred Language | Unknown | + + + | Marital Status | Single | + + + | Quaker Affiliation | NON | + + + [...] | Tasha Keane | ECON | [address] | Unavailable | | | | [place], [place] | | | | | [address] | | + + + + + Care Team Providers + +------+ + | Care Distribution Operations Supervisor Name | Role | Phone | + +------+ + PCP | Unavailable | + +------+ + Source Comments YOUNG is fully live on both [facility] and [facility] Allergies Not on File Medications Not on file Active Problems Not on file Social History + +-------+ +--------+------+ | Tobacco [...] recent travel history available. | + + Last Filed Vital Signs Not on file Plan of Treatment + + + + + | Health Maintenance | Due Date | Last Done | Comments | + + + + + | Influenza (Flu) | | | | | vaccination (#1) | 9 | | | + + + + + | Pneumococcal | Aged Out | | No longer eligible | | vaccination | | | based on patient's | | | | | age to complete this | | | | | topic | + + + + + Results Not on filefrom Last 3 Months"
--- OUTSIDE RECORDS SUMMARY | ~2019-07-04 | XMS | Encounter Summary ---
Demographics + + + | Address | [address] | | | [place] [address] | + + + | Preferred Language | Unknown | + + + | Marital Status | Single | + + + | Jewish Affiliation | NON | + + + [...] [place], [place] | | | | | [address] | | + + + + + Care Team Providers + +------+ + | Care Handle Bender Name | Role | Phone | + [...] as of this encounter Discharge Summaries Interface, Community Living Specialist In - 02/20/2006 5:10 AM PST [place] [address] [address] [facility] MEDICAL SUMMARY OF HOSPITALIZATION Med Rec No: [id number] Admission Date: 2000 Name: Zeus Kline Discharge Date: 2000 STAFF PHYSICIAN: Mack Crouch M.D. PRINCIPAL FINAL DIAGNOSIS: PRINCIPAL PROCEDURE: REASON FOR ADMISSION: Zeus Keane is a 22-day-old male infant admitted to [facility] for care of depression due to maternal abruption. Zeus was delivered at [facility] by emergent section for abruption to a 39-year-old 7, para 5-1-1-6, [place] female at approximately 35-6/7 weeks gestational age [...] are unmarried but partnered, and reside in [place], [place]. The family has been followed closely by [facility], particularly regarding parenting concerns. Tasha's oldest two children are in the Agency's custody. Tasha's urine drug screen has been positive twice, the first date is uncertain at the time of this report, the second date was during her hospitalization at [facility]. Zeus's urine drug screen was negative. Feeding: [...] 1998, and repeated on 1998, also passed. [place] Metabolic Screen: The initial screen was sent [...] smoking in the home, carseat safety, the qync-rr-dducp program, the importance of regular followup for [facility], the hepatitis B immunization importance, and the mixing of 24 kcal/oz milk. Each of the parents did attend the [facility]'s Baby Care classes on the day of discharge. Discharge Follow-up: Followup will be through the [facility] the day after discharge, 1998, at 1330 hours. The patient were advised regarding this appointment. The fax number is . Bob Vaz., Mack Crouch M.D. N.N.PDebbie/C.N.S. SC/sole A FAX: [facility] cc: documente d in this encounter Plan of Treatment Not on filedocumented as of this encounter Visit Diagnoses Not on filedocumented in this encounter"
--- OUTSIDE RECORDS SUMMARY | ~2019-07-04 | XMS | Encounter Summary ---
Demographics + + + | Address | [address] | | | [place] [address] | + + + | Preferred Language | Unknown | + + + | Marital Status | Single | + + + | Alevism Affiliation | NON | + + + [...] [place], [place] | | | | | [address] | | + + + + + Care Team Providers + +------+ + | Care Public Works Director Name | Role | Phone | + [...] [address] | | | | | | [place] [address] | | +--------+ + + + + [...] | | + +---------+ + + | [facility] DEPARTMENT OF | | | | | RADIOLOGY | | | | + +---------+ + + documented in this encounter Visit Diagnoses Not on filedocumented in this encounter"
--- OUTSIDE RECORDS SUMMARY | ~2019-07-04 | XMS | Encounter Summary ---
Demographics + + + | Address | [address] | | | [place] [address] | + + + | Preferred Language | Unknown | + + + | Marital Status | Single | + + + | Cheondoism Affiliation | NON | + + + | Race | White | + + + | Ethnic Group | Not or | + + + Author + + + | Author | [facility] | + + + | Organization | [facility] | + + + | Address | Unknown | + + + | Phone | Unavailable | + + + Support + + + + + | Name | Relationship | Address | Phone | + + + + + | Tasha Keane | ECON | [address] | Unavailable | | | | [place] | | | | | [address] | | + + + + + Care Team Providers + +------+ + | Care Summer Sessions Director Name | Role | Phone | + +------+ + PCP | Unavailable | + +------+ + Encounter Details +--------+ + + + + | Date | Type | Department | Care Team | Description | +--------+ + + + + | 08/10/ | Results | [facility] [address] | Catrina Haines MD | | | 1998 | Only | Ishan Resendez | [address] | | | | | Brad | Laya Gibson [facility] | | | | | [facility], | [place] [address] | | | | | [address] [place] [address] | [phone] | | | | | [place], [place] | | | | | | [address] | | | | | | [phone] | | | +--------+ + + + [...] | | + +---------+ + + | [facility] DEPARTMENT OF | | | | | RADIOLOGY | | | | + +---------+ + + documented in this encounter Visit Diagnoses Not on filedocumented in this encounter"
--- OUTSIDE RECORDS SUMMARY | ~2019-07-04 | XMS | Encounter Summary ---
Demographics + + + | Address | [address] | | | [place] [address] | + + + | Preferred Language | Unknown | + + + | Marital Status | Single | + + + | Mandaen Affiliation | NON | + + + | Race | White | + + + | Ethnic Group | Not or | + + + Author + + + | Author | [facility] | + + + | Organization | [facility] | [...] [place] | | | | | [address] | | + + + + + Care Team Providers + +------+ + | Care Gear Roller Name | Role | Phone | + +------+ + PCP | Unavailable | + +------+ + Encounter Details +--------+ + + + + | Date | Type | Department | Care Team | Description | +--------+ + + + + | 07/29/ | Results | Registration [id number] | | | | 1998 | Only | [address] | | | | | | [address] Mailcode: [id number] | | | | | | [place], [place] | | | | | | [address] | | | | | | [phone] | | | +--------+ + + + [...] | + +--------+ + + + | STUDY TESTS | Routin | 1998 | | Results for this | | | e | 5:00 AM | | procedure are in the | | | | PDT | | results section. | + +--------+ + + + | CHEMISTRY TESTS 4 | Routin | 1998 | | Results for this | | | e | 4:15 AM | | procedure are in the | | | | PDT | | results section. | + +--------+ + + + | CHEMISTRY TESTS 4 | Routin | 1998 | | Results for this | | | e | 4:40 AM | | procedure are in the | | | | PDT | | results section. | + +--------+ + + + | BLOOD GASES, | Routin | 1998 | | Results for this | | ARTERIAL - LAB | e | 9:21 AM | | procedure are in the | | | | PDT | | results section. | + +--------+ + + + | BLOOD GASES, | Routin | 1998 | | Results for this | | ARTERIAL - LAB | e | 4:00 AM | | procedure are in the | | | | PDT | | results section. | + +--------+ + + + | CHEMISTRY TESTS 4 | Routin | 1998 | | Results for this | | | e | 3:58 AM | | procedure are in the | | | | PDT | | results section. | + +--------+ + + + | CBC TESTS 2 | Routin | 1998 | | Results for this | | | e | 3:58 AM | | procedure are in the | | | | PDT | | results section. | + +--------+ + + + | BLOOD GASES, | Routin | 1998 | | Results for this | | ARTERIAL - LAB | e | 9:45 PM | | procedure are in the | | | | PDT | | results section. | + +--------+ + + + | BLOOD GASES, | Routin | 1998 | | Results for this | | ARTERIAL - LAB | e | 1:53 PM | | procedure are in the | | | | PDT | | results section. | + +--------+ + + + | BLOOD GASES, | Routin | 1998 | | Results for this | | ARTERIAL - LAB | e | 11:45 AM | | procedure are in the | | | | PDT | | results section. | + +--------+ + + + | CHEMISTRY TESTS 4 | Routin | 1998 | | Results for this | | | e | 4:17 AM | | procedure are in the | | | | PDT | | results section. | + +--------+ + + + | CHEMISTRY TESTS 2 | Routin | 1998 | | Results for this | | | e | 4:17 AM | | procedure are in the | | | | PDT | | results section. | + +--------+ + + + | CHEMISTRY TESTS 4 | Routin | 1998 | | Results for this | | | e | 4:00 AM | | procedure are in the | | | | PDT | | results section. | + +--------+ + + + | BLOOD GASES, | Routin | 1998 | | Results for this | | ARTERIAL - LAB | e | 4:00 AM | | procedure are in the | | | | PDT | | results section. | + +--------+ + + + | BLOOD GASES, | Routin | 1998 | | Results for this | | ARTERIAL - LAB | e | 9:59 PM | | procedure are in the | | | | PDT | | results section. | + +--------+ + + + | BLOOD GASES, | Routin | 1998 | | Results for this | | ARTERIAL - LAB | e | 8:22 PM | | procedure are in the | | | | PDT | | results section. | + +--------+ + + + | BLOOD GASES, | Routin | 1998 | | Results for this | | ARTERIAL - LAB | e | 2:11 PM | | procedure are in the | | | | PDT | | results section. | + +--------+ + + + | CHEMISTRY TESTS 4 | Routin | 1998 | | Results for this | | | e | 4:00 AM | | procedure are in the | | | | PDT | | results section. | + +--------+ + + + | CHEMISTRY TESTS 4 | Routin | 1998 | | Results for this | | | e | 4:00 AM | | procedure are in the | | | | PDT | | results section. | + +--------+ + + + | BLOOD GASES, | Routin | 1998 | | Results for this | | ARTERIAL - LAB | e | 4:00 AM | | procedure are in the | | | | PDT | | results section. | + +--------+ + + + | BLOOD GASES, | Routin | 1998 | | Results for this | | ARTERIAL - LAB | e | 7:59 PM | | procedure are in the | | | | PDT | | results section. | + +--------+ + + + | BLOOD GASES, | Routin | 1998 | | Results for this | | ARTERIAL - LAB | e | 1:44 PM | | procedure are in the | | | | PDT | | results section. | + +--------+ + + + | CHEMISTRY TESTS 4 | Routin | 1998 | | Results for this | | | e | 5:48 AM | | procedure are in the | | | | PDT | | results section. | + +--------+ + + + | BLOOD GASES, | Routin | 1998 | | Results for this | | ARTERIAL - LAB | e | 5:48 AM | | procedure are in the | | | | PDT | | results section. | + +--------+ + + + | CHEMISTRY TESTS 4 | Routin | 1998 | | Results for this | | | e | 4:00 AM | | procedure are in the | | | | PDT | | results section. | + +--------+ + + + | BLOOD GASES, | Routin | 1998 | | Results for this | | ARTERIAL - LAB | e | 7:49 PM | | procedure are in the | | | | PDT | | results section. | + +--------+ + + + | BLOOD GASES, | Routin | 1998 | | Results for this | | ARTERIAL - LAB | e | 3:42 PM | | procedure are in the | | | | PDT | | results section. | + +--------+ + + + | CBC TESTS 2 | Routin | 1998 | | Results for this | | | e | 11:48 AM | | procedure are in the | | | | PDT | | results section. | + +--------+ + + + | BLOOD GASES, | Routin | 1998 | | Results for this | | ARTERIAL - LAB | e | 11:46 AM | | procedure are in the | | | | PDT | | results section. | + +--------+ + + + | BLOOD GASES, | Routin | 1998 | | Results for this | | ARTERIAL - LAB | e | 7:07 AM | | procedure are in the | | | | PDT | | results section. | + +--------+ + + + | CHEMISTRY TESTS 4 | Routin | 1998 | | Results for this | | | e | 5:26 AM | | procedure are in the | | | | PDT | | results section. | + +--------+ + + + | CBC TESTS 2 | Routin | 1998 | | Results for this | | | e | 5:26 AM | | procedure are in the | | | | PDT | | results section. | + +--------+ + + + | CHEMISTRY TESTS 4 | Routin | 1998 | | Results for this | | | e | 4:30 AM | | procedure are in the | | | | PDT | | results section. | + +--------+ + + + | STUDY TESTS | Routin | 1998 | | Results for this | | | e | 4:30 AM | | procedure are in the | | | | PDT | | results section. | + +--------+ + + + | BLOOD GASES, | Routin | 1998 | | Results for this | | ARTERIAL - LAB | e | 4:30 AM | | procedure are in the | | | | PDT | | results section. | + +--------+ + + + | CHEMISTRY TESTS 4 | Routin | 1998 | | Results for this | | | e | 2:10 AM | | procedure are in the | | | | PDT | | results section. | + +--------+ + + + | BLOOD GASES, | Routin | 1998 | | Results for this | | ARTERIAL - LAB | e | 2:10 AM | | procedure are in the | | | | PDT | | results section. | + +--------+ + + + | CHEMISTRY TESTS 4 | Routin | 1998 | | Results for this | | | e | 1:59 AM | | procedure are in the | | | | PDT | | results section. | + +--------+ + + + | BLOOD GASES, | Routin | 1998 | | Results for this | | ARTERIAL - LAB | e | 1:59 AM | | procedure are in the | | | | PDT | | results section. | + +--------+ + + + | BLOOD GASES, | Routin | 1998 | | Results for this | | ARTERIAL - LAB | e | 5:52 PM | | procedure are in the | | | | PDT | | results section. | + +--------+ + + + | BLOOD GASES, | Routin | 1998 | | Results for this | | ARTERIAL - LAB | e | 12:35 PM | | procedure are in the | | | | PDT | | results section. | + +--------+ + + + | CHEMISTRY TESTS 4 | Routin | 1998 | | Results for this | | | e | 10:25 AM | | procedure are in the | | | | PDT | | results section. | + +--------+ + + + | CHEMISTRY TESTS 4 | Routin | 1998 | | Results for this | | | e | 7:55 AM | | procedure are in the | | | | PDT | | results section. | + +--------+ + + + | BLOOD GASES, | Routin | 1998 | | Results for this | | ARTERIAL - LAB | e | 7:55 AM | | procedure are in the | | | | PDT | | results section. | + +--------+ + + + | CHEMISTRY TESTS 4 | Routin | 1998 | | Results for this | | | e | 6:30 AM | | procedure are in the | | | | PDT | | results section. | + +--------+ + + + | CHEMISTRY TESTS 4 | Routin | 1998 | | Results for this | | | e | 5:30 AM | | procedure are in the | | | | PDT | | results section. | + +--------+ + + + | CHEMISTRY TESTS 2 | Routin | 1998 | | Results for this | | | e | 5:30 AM | | procedure are in the | | | | PDT | | results section. | + +--------+ + + + | BLOOD GASES, | Routin | 1998 | | Results for this | | ARTERIAL - LAB | e | 5:26 AM | | procedure are in the | | | | PDT | | results section. | + +--------+ + + + | BLOOD GASES, | Routin | 1998 | | Results for this | | ARTERIAL - LAB | e | 12:58 AM | | procedure are in the | | | | PDT | | results section. | + +--------+ + + + | BLOOD GASES, | Routin | 1998 | | Results for this | | ARTERIAL - LAB | e | 10:26 PM | | procedure are in the | | | | PDT | | results section. | + +--------+ + + + | CHEMISTRY TESTS 4 | Routin | 1998 | | Results for this | | | e | 10:20 PM | | procedure are in the | | | | PDT | | results section. | + +--------+ + + + | BLOOD GASES, | Routin | 1998 | | Results for this | | ARTERIAL - LAB | e | 8:04 PM | | procedure are in the | | | | PDT | | results section. | + +--------+ + + + | CHEMISTRY TESTS 4 | Routin | 1998 | | Results for this | | | e | 4:05 PM | | procedure are in the | | | | PDT | | results section. | + +--------+ + + + | BLOOD GASES, | Routin | 1998 | | Results for this | | ARTERIAL - LAB | e | 4:03 PM | | procedure are in the | | | | PDT | | results section. | + +--------+ + + + | BLOOD GASES, | Routin | 1998 | | Results for this | | ARTERIAL - LAB | e | 2:23 PM | | procedure are in the | | | | PDT | | results section. | + +--------+ + + + | CHEMISTRY TESTS 4 | Routin | 1998 | | Results for this | | | e | 1:30 PM | | procedure are in the | | | | PDT | | results section. | + +--------+ + + + | BLOOD GASES, | Routin | 1998 | | Results for this | | ARTERIAL - LAB | e | 1:27 PM | | procedure are in the | | | | PDT | | results section. | + +--------+ + + + | CBC TESTS 2 | Routin | 1998 | | Results for this | | | e | 12:51 PM | | procedure are in the | | | | PDT | | results section. | + +--------+ + + + | BLOOD GASES, | Routin | 1998 | | Results for this | | ARTERIAL - LAB | e | 12:51 PM | | procedure are in the | | | | PDT | | results section. | + +--------+ + + + | CHEMISTRY TESTS 4 | Routin | 1998 | | Results for this | | | e | 12:50 PM | | procedure are in the | | | | PDT | | results section. | + +--------+ + + + | CBC TESTS 2 | Routin | 1998 | | Results for this | | | e | 11:55 AM | | procedure are in the | | | | PDT | | results section. | + +--------+ + + + | BLOOD GASES, | Routin | 1998 | | Results for this | | ARTERIAL - LAB | e | 11:55 AM | | procedure are in the | | | | PDT | | results section. | + +--------+ + + + | BLOOD GASES, | Routin | 1998 | | Results for this | | ARTERIAL - LAB | e | 10:00 AM | | procedure are in the | | | | PDT | | results section. | + +--------+ + + + | BLOOD GASES, | Routin | 1998 | | Results for this | | ARTERIAL - LAB | e | 8:05 AM | | procedure are in the | | | | PDT | | results section. | + +--------+ + + + | CHEMISTRY TESTS 4 | Routin | 1998 | | Results for this | | | e | 5:39 AM | | procedure are in the | | | | PDT | | results section. | + +--------+ + + + | BLOOD GASES, | Routin | 1998 | | Results for this | | ARTERIAL - LAB | e | 5:35 AM | | procedure are in the | | | | PDT | | results section. | + +--------+ + + + | CHEMISTRY TESTS 4 | Routin | 1998 | | Results for this | | | e | 1:30 AM | | procedure are in the | | | | PDT | | results section. | + +--------+ + + + | BLOOD GASES, | Routin | 1998 | | Results for this | | ARTERIAL - LAB | e | 1:30 AM | | procedure are in the | | | | PDT | | results section. | + +--------+ + + + | BLOOD GASES, | Routin | 1998 | | Results for this | | ARTERIAL - LAB | e | 5:53 PM | | procedure are in the | | | | PDT | | results section. | + +--------+ + + + | THERAPEUTIC DRUG | Routin | 1998 | | Results for this | | TESTS 2 | e | 4:10 PM | | procedure are in the | | | | PDT | | results section. | + +--------+ + + + | BLOOD GASES, | Routin | 1998 | | Results for this | | ARTERIAL - LAB | e | 2:08 PM | | procedure are in the | | | | PDT | | results section. | + +--------+ + + + | BLOOD GASES, | Routin | 1998 | | Results for this | | ARTERIAL - LAB | e | 11:13 AM | | procedure are in the | | | | PDT | | results section. | + +--------+ + + + | BLOOD GASES, | Routin | 1998 | | Results for this | | ARTERIAL - LAB | e | 8:38 AM | | procedure are in the | | | | PDT | | results section. | + +--------+ + + + | CBC TESTS 2 | Routin | 1998 | | Results for this | | | e | 7:55 AM | | procedure are in the | | | | PDT | | results section. | + +--------+ + + + | CULTURE, BLOOD BACTI | Routin | 1998 | | Results for this | | & YEAST | e | 7:55 AM | | procedure are in the | | | | PDT | | results section. | + +--------+ + + + | BLOOD GASES, | Routin | 1998 | | Results for this | | ARTERIAL - LAB | e | 7:54 AM | | procedure are in the | | | | PDT | | results section. | + +--------+ + + + | TRANSFUSION MEDICINE | Routin | 1998 | | Results for this | | TESTS | e | 6:50 AM | | procedure are in the | | | | PDT | | results section. | + +--------+ + + + | BLOOD GASES, | Routin | 1998 | | Results for this | | ARTERIAL - LAB | e | 6:50 AM | | procedure are in the | | | | PDT | | results section. | + +--------+ + + + documented in this encounter Results STUDY TESTS (1998 5:00 AM PDT) + + + + + + | Component | Value | Ref Range | Performed | Pathologist | | | | | At | Signature | + + + + + + | | SEE LAB REPORT IN CHART | | | | | SCREEN | | | | | + + + + + + | DONOVAN ROGERSN | REFERRED TO [facility] | | | | | COMMENTS | LAB | | | | + + + + + + | SEND-OUT | [id number]. | | | | | DATE | | | | | + + + + + + | KIT NO. | [id number]. | | | | + + + + + + + + | Specimen | + + | | + + + + + + + | Performing | Address | City/State/Zipcode | Phone Number | | Organization | | | | + + + + + | [facility] | [address] | [place] [address] | | | PATHOLOGY | [address] | | | + + + + + CHEMISTRY TESTS 4 (1998 4:15 AM PDT) + + + + + + | Component | Value | Ref Range | Performed | Pathologist | | | | | At | Signature | + + + + + + | SODIUM, | 142. | mmol/l | | | | PLASMA | | | | | | (LAB) | | | | | + + + + + + | POTASSIUM, | 5.6 (H) | mmol/l | | | | PLASMA | | | | | | (LAB) | | | | | + + + + + + | CHLORIDE, | 115. (H) | mmol/l | | | | PLASMA | | | | | | (LAB) | | | | | + + + + + + | TOTAL CO2, | 22. (L) | mmol/l | | | | PLASMA | | | | | | (LAB) | | | | | + + + + + + + + | Specimen | + + | | + + + + + + + | Performing | Address | City/State/Zipcode | Phone Number | | Organization | | | | + + + + + | [facility] | [address] | [place] [address] | | | PATHOLOGY | [address] | | | + + + + + CHEMISTRY TESTS 4 (1998 4:40 AM PDT) + + + + + + | Component | Value | Ref Range | Performed | Pathologist | | | | | At | Signature | + + + + + + | SODIUM, | 143. | mmol/l | | | | PLASMA | | | | | | (LAB) | | | | | + + + + + + | POTASSIUM, | 4.9 | mmol/l | | | | PLASMA | | | | | | (LAB) | | | | | + + + + + + | CHLORIDE, | 112. (H) | mmol/l | | | | PLASMA | | | | | | (LAB) | | | | | + + + + + + | TOTAL CO2, | 27. | mmol/l | | | | PLASMA | | | | | | (LAB) | | | | | + + + + + + + + | Specimen | + + | | + + + + + + + | Performing | Address | City/State/Zipcode | Phone Number | | Organization | | | | + + + + + | [facility] | [address] | [place] [address] | | | PATHOLOGY | [address] | | | + + + + + BLOOD GASES, ARTERIAL - LAB (1998 9:21 AM PDT) + + + + + + | Component | Value | Ref Range | Performed | Pathologist | | | | | At | Signature | + + + + + + | PAT TEMP | 37.8 | DEGREES C. | | | | ART, POC | | | | | + + + + + + | FIO2 ART, | 1/8lpm | % | | | | POC | | | | | + + + + + + | PH | 7.37 | % | | | | ARTERIAL, | | | | | | POC | | | | | + + + + + + | PCO2 | 45. | MM HG | | | | ARTERIAL, | | | | | | POC | | | | | + + + + + + | PO2 | 65. | MM HG | | | | ARTERIAL, | | | | | | POC | | | | | + + + + + + | BASE EXCESS | 0.1 | MM HG | | | | ART, POC | | | | | + + + + + + | HCO3 | 25. | mmol/l | | | | ARTERIAL, | | | | | | POC | | | | | + + + + + + | TOTAL CO2 | 27. | mmol/l | | | | ART, POC | | | | | + + + + + + + + | Specimen | + + | | + + + + + + + | Performing | Address | City/State/Zipcode | Phone Number | | Organization | | | | + + + + + | [facility] | [address] | [place] [address] | | | PATHOLOGY | [address] | | | + + + + + BLOOD GASES, ARTERIAL - LAB (1998 4:00 AM PDT) + + + + + + | Component | Value | Ref Range | Performed | Pathologist | | | | | At | Signature | + + + + + + | PAT TEMP | 37. | DEGREES C. | | | | ARTERIAL | | | | | + + + + + + | FIO2 | 0.24 | DEGREES C. | | | | ARTERIAL | | | | | + + + + + + | PH ARTERIAL | 7.43 | DEGREES C. | | | + + + + + + | PCO2 | 41. | MM HG | | | | ARTERIAL | | | | | + + + + + + | PO2 | 112. (H) | MM HG | | | | ARTERIAL | | | | | + + + + + + | BASE EXCESS | 3.2 | MM HG | | | | ARTERIAL | | | | | + + + + + + | HCO3 | 27. | mmol/l | | | | ARTERIAL | | | | | + + + + + + | TOTAL CO2 | 28. | mmol/l | | | | ARTERIAL | | | | | + + + + + + | CALC %O2 | 98.5 | % O2 Sat | | | | SAT ARTER | | | | | + + + + + + + + | Specimen | + + | | + + + + + + + | Performing | Address | City/State/Zipcode | Phone Number | | Organization | | | | + + + + + | [facility] | [address] | [place] [address] | | | PATHOLOGY | [address] | | | + + + + + CBC TESTS 2 (1998 3:58 AM PDT) + + + + + + | Component | Value | Ref Range | Performed | Pathologist | | | | | At | Signature | + + + + + + | HEMATOCRIT | 32.2 (L) | % | | | + + + + + + + + | Specimen | + + | | + + + + + + + | Performing | Address | City/State/Zipcode | Phone Number | | Organization | | | | + + + + + | [facility] | [address] | [place] [address] | | | PATHOLOGY | [address] | | | + + + + + CHEMISTRY TESTS 4 (1998 3:58 AM PDT) + + + + + + | Component | Value | Ref Range | Performed | Pathologist | | | | | At | Signature | + + + + + + | SODIUM, | 142. | mmol/l | | | | PLASMA | | | | | | (LAB) | | | | | + + + + + + | POTASSIUM, | 3.7 | mmol/l | | | | PLASMA | | | | | | (LAB) | | | | | + + + + + + | CHLORIDE, | 116. (H) | mmol/l | | | | PLASMA | | | | | | (LAB) | | | | | + + + + + + | TOTAL CO2, | 24. | mmol/l | | | | PLASMA | | | | | | (LAB) | | | | | + + + + + + | BUN, PLASMA | 40. (H) | mg/dL | | | | (LAB) | | | | | + + + + + + | CREATININE | 0.4 | mg/dL | | | | PLASMA | | | | | | (LAB) | | | | | + + + + + + | GLUCOSE, | 92. (H) | mg/dL | | | | PLASMA | | | | | | (LAB) | | | | | + + + + + + | CALCIUM, | 9.2 | mg/dL | | | | PLASMA | | | | | | (LAB) | | | | | + + + + + + | AST(SGOT) | 17. (L) | U/L | | | + + + + + + | ALK PHOS | 104. | U/L | | | + + + + + + | BILIRUBIN | 3. (H) | mg/dL | | | | TOTAL | | | | | + + + + + + | TOTAL | 3.9 (L) | GM/DL | | | | PROTEIN, | | | | | | PLASMA | | | | | | (LAB) | | | | | + + + + + + | ALBUMIN, | 2.4 (L) | GM/DL | | | | PLASMA | | | | | | (LAB) | | | | | + + + + + + + + | Specimen | + + | | + + + + + + + | Performing | Address | City/State/Zipcode | Phone Number | | Organization | | | | + + + + + | [facility] | [address] | [place], [place] [address] | | | PATHOLOGY | [address] | | | + + + + + BLOOD GASES, ARTERIAL - LAB (1998 9:45 PM PDT) + + + + + + | Component | Value | Ref Range | Performed | Pathologist | | | | | At | Signature | + + + + + + | PAT TEMP | 36.6 | DEGREES C. | | | | ART, POC | | | | | + + + + + + | FIO2 ART, | 0.25 | % | | | | POC | | | | | + + + + + + | PH | 7.35 | % | | | | ARTERIAL, | | | | | | POC | | | | | + + + + + + | PCO2 | 45. | MM HG | | | | ARTERIAL, | | | | | | POC | | | | | + + + + + + | PO2 | 99. (H) | MM HG | | | | ARTERIAL, | | | | | | POC | | | | | + + + + + + | BASE EXCESS | -0.4 | MM HG | | | | ART, POC | | | | | + + + + + + | HCO3 | 25. | mmol/l | | | | ARTERIAL, | | | | | | POC | | | | | + + + + + + | TOTAL CO2 | 26. | mmol/l | | | | ART, POC | | | | | + + + + + + + + | Specimen | + + | | + + + + + + + | Performing | Address | City/State/Zipcode | Phone Number | | Organization | | | | + + + + + | [facility] | [address] | [place] [address] | | | PATHOLOGY | [address] | | | + + + + + BLOOD GASES, ARTERIAL - LAB (1998 1:53 PM PDT) + + + + + + | Component | Value | Ref Range | Performed | Pathologist | | | | | At | Signature | + + + + + + | PAT TEMP | 36.4 | DEGREES C. | | | | ART, POC | | | | | + + + + + + | FIO2 ART, | 0.32 | % | | | | POC | | | | | + + + + + + | PH | 7.38 | % | | | | ARTERIAL, | | | | | | POC | | | | | + + + + + + | PCO2 | 39. | MM HG | | | | ARTERIAL, | | | | | | POC | | | | | + + + + + + | PO2 | 130. (H) | MM HG | | | | ARTERIAL, | | | | | | POC | | | | | + + + + + + | BASE EXCESS | -1.7 | MM HG | | | | ART, POC | | | | | + + + + + + | HCO3 | 23. | mmol/l | | | | ARTERIAL, | | | | | | POC | | | | | + + + + + + | TOTAL CO2 | 24. | mmol/l | | | | ART, POC | | | | | + + + + + + + + | Specimen | + + | | + + + + + + + | Performing | Address | City/State/Zipcode | Phone Number | | Organization | | | | + + + + + | [facility] | [address] | [place] [address] | | | PATHOLOGY | [address] | | | + + + + + BLOOD GASES, ARTERIAL - LAB (1998 11:45 AM PDT) + + + + + + | Component | Value | Ref Range | Performed | Pathologist | | | | | At | Signature | + + + + + + | PAT TEMP | 36.4 | DEGREES C. | | | | ART, POC | | | | | + + + + + + | FIO2 ART, | 0.3 | % | | | | POC | | | | | + + + + + + | PH | 7.38 | % | | | | ARTERIAL, | | | | | | POC | | | | | + + + + + + | PCO2 | 38. | MM HG | | | | ARTERIAL, | | | | | | POC | | | | | + + + + + + | PO2 | 70. | MM HG | | | | ARTERIAL, | | | | | | POC | | | | | + + + + + + | BASE EXCESS | -1.5 | MM HG | | | | ART, POC | | | | | + + + + + + | HCO3 | 23. | mmol/l | | | | ARTERIAL, | | | | | | POC | | | | | + + + + + + | TOTAL CO2 | 24. | mmol/l | | | | ART, POC | | | | | + + + + + + + + | Specimen | + + | | + + + + + + + | Performing | Address | City/State/Zipcode | Phone Number | | Organization | | | | + + + + + | [facility] | [address] | [place] [address] | | | PATHOLOGY | [address] | | | + + + + + CHEMISTRY TESTS 2 (1998 4:17 AM PDT) + + + + + + | Component | Value | Ref Range | Performed | Pathologist | | | | | At | Signature | + + + + + + | TRIGLYCERID | 42. | mg/dL | | | | ES | | | | | + + + + + + + + | Specimen | + + | | + + + + + + + | Performing | Address | City/State/Zipcode | Phone Number | | Organization | | | | + + + + + | [facility] | [address] | [place] [address] | | | PATHOLOGY | [address] | | | + + + + + CHEMISTRY TESTS 4 (1998 4:17 AM PDT) + + + + + + | Component | Value | Ref Range | Performed | Pathologist | | | | | At | Signature | + + + + + + | SODIUM, | 148. (H) | mmol/l | | | | PLASMA | | | | | | (LAB) | | | | | + + + + + + | POTASSIUM, | 3.6 | mmol/l | | | | PLASMA | | | | | | (LAB) | | | | | + + + + + + | CHLORIDE, | 114. (H) | mmol/l | | | | PLASMA | | | | | | (LAB) | | | | | + + + + + + | TOTAL CO2, | 28. | mmol/l | | | | PLASMA | | | | | | (LAB) | | | | | + + + + + + | BUN, PLASMA | 57. (H) | mg/dL | | | | (LAB) | | | | | + + + + + + | CREATININE | 0.6 | mg/dL | | | | PLASMA | | | | | | (LAB) | | | | | + + + + + + | GLUCOSE, | 97. (H) | mg/dL | | | | PLASMA | | | | | | (LAB) | | | | | + + + + + + | CALCIUM, | 9.1 | mg/dL | | | | PLASMA | | | | | | (LAB) | | | | | + + + + + + | MAGNESIUM,P | 2.7 (H) | mg/dL | | | | LASMA | | | | | + + + + + + | PHOSPHORUS, | 3.6 (L) | mg/dL | | | | PLASMA | | | | | | (LAB) | | | | | + + + + + + | AST(SGOT) | 21. (L) | U/L | | | + + + + + + | ALK PHOS | 85. | U/L | | | + + + + + + | BILIRUBIN | 0.7 (H) | mg/dL | | | | DIRECT | | | | | + + + + + + | BILIRUBIN | 6.2 (H) | mg/dL | | | | TOTAL | | | | | + + + + + + | TOTAL | 4. (L) | GM/DL | | | | PROTEIN, | | | | | | PLASMA | | | | | | (LAB) | | | | | + + + + + + | ALBUMIN, | 2.6 (L) | GM/DL | | | | PLASMA | | | | | | (LAB) | | | | | + + + + + + + + | Specimen | + + | | + + + + + + + | Performing | Address | City/State/Zipcode | Phone Number | | Organization | | | | + + + + + | [facility] | [address] | [place] [address] | | | PATHOLOGY | [address] | | | + + + + + CHEMISTRY TESTS 4 (1998 4:00 AM PDT) + + + + + + | Component | Value | Ref Range | Performed | Pathologist | | | | | At | Signature | + + + + + + | METHEMOGLOB | 1.7 | % | | | | IN | | | | | + + + + + + + + | Specimen | + + | | + + + + + + + | Performing | Address | City/State/Zipcode | Phone Number | | Organization | | | | + + + + + | [facility] | [address] | [place] [address] | | | PATHOLOGY | [address] | | | + + + + + BLOOD GASES, ARTERIAL - LAB (1998 4:00 AM PDT) + + + + + + | Component | Value | Ref Range | Performed | Pathologist | | | | | At | Signature | + + + + + + | PAT TEMP | 36.8 | [facility]. | | | | ARTERIAL | | | | | + + + + + + | FIO2 | 0.3 | [facility]. | | | | ARTERIAL | | | | | + + + + + + | PH ARTERIAL | 7.39 | [facility]. | | | + + + + + + | PCO2 | 43. | MM HG | | | | ARTERIAL | | | | | + + + + + + | PO2 | 77. (H) | MM HG | | | | ARTERIAL | | | | | + + + + + + | BASE EXCESS | 1.7 | MM HG | | | | ARTERIAL | | | | | + + + + + + | HCO3 | 26. | mmol/l | | | | ARTERIAL | | | | | + + + + + + | TOTAL CO2 | 28. | mmol/l | | | | ARTERIAL | | | | | + + + + + + | CALC %O2 | 95.1 | % O2 Sat | | | | SAT ARTER | | | | | + + + + + + + + | Specimen | + + | | + + + + + + + | Performing | Address | City/State/Zipcode | Phone Number | | Organization | | | | + + + + + | [facility] | [address] | [place] [address] | | | PATHOLOGY | [address] | | | + + + + + BLOOD GASES, ARTERIAL - LAB (1998 9:59 PM PDT) + + + + + + | Component | Value | Ref Range | Performed | Pathologist | | | | | At | Signature | + + + + + + | PAT TEMP | 36.8 | [facility]. | | | | ART, POC | | | | | + + + + + + | FIO2 ART, | 0.28 | % | | | | POC | | | | | + + + + + + | PH | 7.39 | % | | | | ARTERIAL, | | | | | | POC | | | | | + + + + + + | PCO2 | 39. | MM HG | | | | ARTERIAL, | | | | | | POC | | | | | + + + + + + | PO2 | 68. | MM HG | | | | ARTERIAL, | | | | | | POC | | | | | + + + + + + | BASE EXCESS | -0.4 | MM HG | | | | ART, POC | | | | | + + + + + + | HCO3 | 24. | mmol/l | | | | ARTERIAL, | | | | | | POC | | | | | + + + + + + | TOTAL CO2 | 25. | mmol/l | | | | ART, POC | | | | | + + + + + + + + | Specimen | + + | | + + + + + + + | Performing | Address | City/State/Zipcode | Phone Number | | Organization | | | | + + + + + | [facility] | [address] | [place] [address] | | | PATHOLOGY | [address] | | | + + + + + BLOOD GASES, ARTERIAL - LAB (1998 8:22 PM PDT) + + + + + + | Component | Value | Ref Range | Performed | Pathologist | | | | | At | Signature | + + + + + + | PAT TEMP | 36.7 | [facility]. | | | | ART, POC | | | | | + + + + + + | FIO2 ART, | 0.28 | % | | | | POC | | | | | + + + + + + | PH | 7.28 (L) | % | | | | ARTERIAL, | | | | | | POC | | | | | + + + + + + | PCO2 | 53. | MM HG | | | | ARTERIAL, | | | | | | POC | | | | | + + + + + + | PO2 | 75. | MM HG | | | | ARTERIAL, | | | | | | POC | | | | | + + + + + + | BASE EXCESS | -2.1 | MM HG | | | | ART, POC | | | | | + + + + + + | HCO3 | 25. | mmol/l | | | | ARTERIAL, | | | | | | POC | | | | | + + + + + + | TOTAL CO2 | 26. | mmol/l | | | | ART, POC | | | | | + + + + + + + + | Specimen | + + | | + + + + + + + | Performing | Address | City/State/Zipcode | Phone Number | | Organization | | | | + + + + + | [facility] | [address] | [place] [address] | | | PATHOLOGY | [address] | | | + + + + + BLOOD GASES, ARTERIAL - LAB (1998 2:11 PM PDT) + + + + + + | Component | Value | Ref Range | Performed | Pathologist | | | | | At | Signature | + + + + + + | PAT TEMP | 36.4 | [facility]. | | | | ART, POC | | | | | + + + + + + | FIO2 ART, | 0.35 | % | | | | POC | | | | | + + + + + + | PH | 7.37 | % | | | | ARTERIAL, | | | | | | POC | | | | | + + + + + + | PCO2 | 41. | MM HG | | | | ARTERIAL, | | | | | | POC | | | | | + + + + + + | PO2 | 156. (H) | MM HG | | | | ARTERIAL, | | | | | | POC | | | | | + + + + + + | BASE EXCESS | -1.4 | MM HG | | | | ART, POC | | | | | + + + + + + | HCO3 | 23. | mmol/l | | | | ARTERIAL, | | | | | | POC | | | | | + + + + + + | TOTAL CO2 | 25. | mmol/l | | | | ART, POC | | | | | + + + + + + + + | Specimen | + + | | + + + + + + + | Performing | Address | City/State/Zipcode | Phone Number | | Organization | | | | + + + + + | [facility] | [address] | [place] [address] | | | PATHOLOGY | [address] | | | + + + + + BLOOD GASES, ARTERIAL - LAB (1998 4:00 AM PDT) + + + + + + | Component | Value | Ref Range | Performed | Pathologist | | | | | At | Signature | + + + + + + | PAT TEMP | 36.8 | [facility]. | | | | ARTERIAL | | | | | + + + + + + | FIO2 | 0.26 | [facility]. | | | | ARTERIAL | | | | | + + + + + + | PH ARTERIAL | 7.38 | [facility]. | | | + + + + + + | PCO2 | 40. | MM HG | | | | ARTERIAL | | | | | + + + + + + | PO2 | 92. (H) | MM HG | | | | ARTERIAL | | | | | + + + + + + | BASE EXCESS | -0.6 | MM HG | | | | ARTERIAL | | | | | + + + + + + | HCO3 | 24. | mmol/l | | | | ARTERIAL | | | | | + + + + + + | TOTAL CO2 | 25. | mmol/l | | | | ARTERIAL | | | | | + + + + + + | CALC %O2 | 97.1 | % O2 Sat | | | | SAT ARTER | | | | | + + + + + + + + | Specimen | + + | | + + + + + + + | Performing | Address | City/State/Zipcode | Phone Number | | Organization | | | | + + + + + | [facility] | [address] | [place] [address] | | | PATHOLOGY | [address] | | | + + + + + CHEMISTRY TESTS 4 (1998 4:00 AM PDT) + + + + + + | Component | Value | Ref Range | Performed | Pathologist | | | | | At | Signature | + + + + + + | METHEMOGLOB | 1.9 | % | | | | IN | | | | | + + + + + + + + | Specimen | + + | | + + + + + + + | Performing | Address | City/State/Zipcode | Phone Number | | Organization | | | | + + + + + | [facility] | [address] | [place] [address] | | | PATHOLOGY | [address] | | | + + + + + CHEMISTRY TESTS 4 (1998 4:00 AM PDT) + + + + + + | Component | Value | Ref Range | Performed | Pathologist | | | | | At | Signature | + + + + + + | SODIUM, | 142. | mmol/l | | | | PLASMA | | | | | | (LAB) | | | | | + + + + + + | POTASSIUM, | 4.4 | mmol/l | | | | PLASMA | | | | | | (LAB) | | | | | + + + + + + | CHLORIDE, | 115. (H) | mmol/l | | | | PLASMA | | | | | | (LAB) | | | | | + + + + + + | TOTAL CO2, | 23. | mmol/l | | | | PLASMA | | | | | | (LAB) | | | | | + + + + + + | BUN, PLASMA | 70. (H) | mg/dL | | | | (LAB) | | | | | + + + + + + | CREATININE | 0.6 | mg/dL | | | | PLASMA | | | | | | (LAB) | | | | | + + + + + + | GLUCOSE, | 119. (H) | mg/dL | | | | PLASMA | | | | | | (LAB) | | | | | + + + + + + + + | Specimen | + + | | + + + + + + + | Performing | Address | City/State/Zipcode | Phone Number | | Organization | | | | + + + + + | [facility] | [address] | [place] [address] | | | PATHOLOGY | [address] | | | + + + + + BLOOD GASES, ARTERIAL - LAB (1998 7:59 PM PDT) + + + + + + | Component | Value | Ref Range | Performed | Pathologist | | | | | At | Signature | + + + + + + | PAT TEMP | 36.4 | [facility]. | | | | ART, POC | | | | | + + + + + + | FIO2 ART, | 0.37 | % | | | | POC | | | | | + + + + + + | PH | 7.35 | % | | | | ARTERIAL, | | | | | | POC | | | | | + + + + + + | PCO2 | 39. | MM HG | | | | ARTERIAL, | | | | | | POC | | | | | + + + + + + | PO2 | 148. (H) | MM HG | | | | ARTERIAL, | | | | | | POC | | | | | + + + + + + | BASE EXCESS | -3.1 | MM HG | | | | ART, POC | | | | | + + + + + + | HCO3 | 22. | mmol/l | | | | ARTERIAL, | | | | | | POC | | | | | + + + + + + | TOTAL CO2 | 23. | mmol/l | | | | ART, POC | | | | | + + + + + + + + | Specimen | + + | | + + + + + + + | Performing | Address | City/State/Zipcode | Phone Number | | Organization | | | | + + + + + | [facility] | [address] | [place] [address] | | | PATHOLOGY | [address] | | | + + + + + BLOOD GASES, ARTERIAL - LAB (1998 1:44 PM PDT) + + + + + + | Component | Value | Ref Range | Performed | Pathologist | | | | | At | Signature | + + + + + + | PAT TEMP | 36.8 | [facility]. | | | | ART, POC | | | | | + + + + + + | FIO2 ART, | 0.25 | % | | | | POC | | | | | + + + + + + | PH | 7.3 | % | | | | ARTERIAL, | | | | | | POC | | | | | + + + + + + | PCO2 | 45. | MM HG | | | | ARTERIAL, | | | | | | POC | | | | | + + + + + + | PO2 | 110. (H) | MM HG | | | | ARTERIAL, | | | | | | POC | | | | | + + + + + + | BASE EXCESS | -3.7 | MM HG | | | | ART, POC | | | | | + + + + + + | HCO3 | 22. | mmol/l | | | | ARTERIAL, | | | | | | POC | | | | | + + + + + + | TOTAL CO2 | 24. | mmol/l | | | | ART, POC | | | | | + + + + + + + + | Specimen | + + | | + + + + + + + | Performing | Address | City/State/Zipcode | Phone Number | | Organization | | | | + + + + + | [facility] | [address] | [place] [address] | | | PATHOLOGY | [address] | | | + + + + + BLOOD GASES, ARTERIAL - LAB (1998 5:48 AM PDT) + + + + + + | Component | Value | Ref Range | Performed | Pathologist | | | | | At | Signature | + + + + + + | PAT TEMP | 36.8 | [facility] | | | | ARTERIAL | | | | | + + + + + + | FIO2 | 0.28 | [facility]. | | | | ARTERIAL | | | | | + + + + + + | PH ARTERIAL | 7.36 | [facility]. | | | + + + + + + | PCO2 | 38. | MM HG | | | | ARTERIAL | | | | | + + + + + + | PO2 | 88. (H) | MM HG | | | | ARTERIAL | | | | | + + + + + + | BASE EXCESS | -2.7 | MM HG | | | | ARTERIAL | | | | | + + + + + + | HCO3 | 22. | mmol/l | | | | ARTERIAL | | | | | + + + + + + | TOTAL CO2 | 23. | mmol/l | | | | ARTERIAL | | | | | + + + + + + | CALC %O2 | 96.4 | % O2 Sat | | | | SAT ARTER | | | | | + + + + + + + + | Specimen | + + | | + + + + + + + | Performing | Address | City/State/Zipcode | Phone Number | | Organization | | | | + + + + + | [facility] | [address] | [place] [address] | | | PATHOLOGY | [address] | | | + + + + + CHEMISTRY TESTS 4 (1998 5:48 AM PDT) + + + + + + | Component | Value | Ref Range | Performed | Pathologist | | | | | At | Signature | + + + + + + | SODIUM, | 137. | mmol/l | | | | PLASMA | | | | | | (LAB) | | | | | + + + + + + | POTASSIUM, | 4.9 | mmol/l | | | | PLASMA | | | | | | (LAB) | | | | | + + + + + + | CHLORIDE, | 105. | mmol/l | | | | PLASMA | | | | | | (LAB) | | | | | + + + + + + | TOTAL CO2, | 24. | mmol/l | | | | PLASMA | | | | | | (LAB) | | | | | + + + + + + | BUN, PLASMA | 64. (H) | mg/dL | | | | (LAB) | | | | | + + + + + + | CREATININE | 0.6 | mg/dL | | | | PLASMA | | | | | | (LAB) | | | | | + + + + + + | GLUCOSE, | 124. (H) | mg/dL | | | | PLASMA | | | | | | (LAB) | | | | | + + + + + + | CALCIUM, | 7.5 | mg/dL | | | | PLASMA | | | | | | (LAB) | | | | | + + + + + + | MAGNESIUM,P | 2.3 (H) | mg/dL | | | | LASMA | | | | | + + + + + + | PHOSPHORUS, | 5.1 | mg/dL | | | | PLASMA | | | | | | (LAB) | | | | | + + + + + + | ALBUMIN, | 2.3 (L) | GM/DL | | | | PLASMA | | | | | | (LAB) | | | | | + + + + + + | METHEMOGLOB | 2.3 | % | | | | IN | | | | | + + + + + + + + | Specimen | + + | | + + + + + + + | Performing | Address | City/State/Zipcode | Phone Number | | Organization | | | | + + + + + | [facility] | [address] | [place] [address] | | | PATHOLOGY | [address] | | | + + + + + CHEMISTRY TESTS 4 (1998 4:00 AM PDT) + + + + + + | Component | Value | Ref Range | Performed | Pathologist | | | | | At | Signature | + + + + + + | BASIC | NO SPECIMEN RECEIVED IN | GM/DL | | | | METABOLIC | LAB | | | | | SET - | | | | | | HEADER | | | | | + + + + + + | SODIUM, | | mmol/l | | | | PLASMA | | | | | | (LAB) | | | | | + + + + + + | SODIUM, | NO SPECIMEN RECEIVED IN | mmol/l | | | | PLASMA | LAB | | | | | (LAB) | | | | | + + + + + + | POTASSIUM, | | mmol/l | | | | PLASMA | | | | | | (LAB) | | | | | + + + + + + | POTASSIUM, | NO SPECIMEN RECEIVED IN | mmol/l | | | | PLASMA | LAB | | | | | (LAB) | | | | | + + + + + + | CHLORIDE, | NO SPECIMEN RECEIVED IN | mmol/l | | | | PLASMA | LAB | | | | | (LAB) | | | | | + + + + + + | TOTAL CO2, | NO SPECIMEN RECEIVED IN | mmol/l | | | | PLASMA | LAB | | | | | (LAB) | | | | | + + + + + + | BUN, PLASMA | NO SPECIMEN RECEIVED IN | mg/dL | | | | (LAB) | LAB | | | | + + + + + + | CREATININE | NO SPECIMEN RECEIVED IN | mg/dL | | | | PLASMA | LAB | | | | | (LAB) | | | | | + + + + + + | GLUCOSE, | NO SPECIMEN RECEIVED IN | mg/dL | | | | PLASMA | LAB | | | | | (LAB) | | | | | + + + + + + | CALCIUM, | NO SPECIMEN RECEIVED IN | mg/dL | | | | PLASMA | LAB | | | | | (LAB) | | | | | + + + + + + | MAGNESIUM,P | NO SPECIMEN RECEIVED IN | mg/dL | | | | LASMA | LAB | | | | + + + + + + | PHOSPHORUS, | NO SPECIMEN RECEIVED IN | mg/dL | | | | PLASMA | LAB | | | | | (LAB) | | | | | + + + + + + | ALBUMIN, | NO SPECIMEN RECEIVED IN | GM/DL | | | | PLASMA | LAB | | | | | (LAB) | | | | | + + + + + + + + | Specimen | + + | | + + + + + + + | Performing | Address | City/State/Zipcode | Phone Number | | Organization | | | | + + + + + | [facility] | [address] | [place] [address] | | | PATHOLOGY | [address] | | | + + + + + BLOOD GASES, ARTERIAL - LAB (1998 7:49 PM PDT) + + + + + + | Component | Value | Ref Range | Performed | Pathologist | | | | | At | Signature | + + + + + + | PAT TEMP | 36. | [facility]. | | | | ART, POC | | | | | + + + + + + | FIO2 ART, | 0.38 | % | | | | POC | | | | | + + + + + + | PH | 7.44 | % | | | | ARTERIAL, | | | | | | POC | | | | | + + + + + + | PCO2 | 32. | MM HG | | | | ARTERIAL, | | | | | | POC | | | | | + + + + + + | PO2 | 123. (H) | MM HG | | | | ARTERIAL, | | | | | | POC | | | | | + + + + + + | BASE EXCESS | -1.1 | MM HG | | | | ART, POC | | | | | + + + + + + | HCO3 | 21. | mmol/l | | | | ARTERIAL, | | | | | | POC | | | | | + + + + + + | TOTAL CO2 | 22. | mmol/l | | | | ART, POC | | | | | + + + + + + + + | Specimen | + + | | + + + + + + + | Performing | Address | City/State/Zipcode | Phone Number | | Organization | | | | + + + + + | [facility] | [address] | [place] [address] | | | PATHOLOGY | [address] | | | + + + + + BLOOD GASES, ARTERIAL - LAB (1998 3:42 PM PDT) + + + + + + | Component | Value | Ref Range | Performed | Pathologist | | | | | At | Signature | + + + + + + | PAT TEMP | 36.7 | [facility]. | | | | ART, POC | | | | | + + + + + + | FIO2 ART, | 0.38 | % | | | | POC | | | | | + + + + + + | PH | 7.43 | % | | | | ARTERIAL, | | | | | | POC | | | | | + + + + + + | PCO2 | 33. | MM HG | | | | ARTERIAL, | | | | | | POC | | | | | + + + + + + | PO2 | 133. (H) | MM HG | | | | ARTERIAL, | | | | | | POC | | | | | + + + + + + | BASE EXCESS | -1.5 | MM HG | | | | ART, POC | | | | | + + + + + + | HCO3 | 21. | mmol/l | | | | ARTERIAL, | | | | | | POC | | | | | + + + + + + | TOTAL CO2 | 22. | mmol/l | | | | ART, POC | | | | | + + + + + + + + | Specimen | + + | | + + + + + + + | Performing | Address | City/State/Zipcode | Phone Number | | Organization | | | | + + + + + | [facility] | [address] | [place] [address] | | | PATHOLOGY | [address] | | | + + + + + CBC TESTS 2 (1998 11:48 AM PDT) + + + + + + | Component | Value | Ref Range | Performed | Pathologist | | | | | At | Signature | + + + + + + | HEMATOCRIT | 43. (L) | % | | | + + + + + + | HEMATOCRIT | SPUN, PHONED | % | | | + + + + + + + + | Specimen | + + | | + + + + + + + | Performing | Address | City/State/Zipcode | Phone Number | | Organization | | | | + + + + + | [facility] | [address] | [place] [address] | | | PATHOLOGY | [address] | | | + + + + + BLOOD GASES, ARTERIAL - LAB (1998 11:46 AM PDT) + + + + + + | Component | Value | Ref Range | Performed | Pathologist | | | | | At | Signature | + + + + + + | PAT TEMP | 36.7 | [facility]. | | | | ART, POC | | | | | + + + + + + | FIO2 ART, | 0.45 | % | | | | POC | | | | | + + + + + + | PH | 7.52 (H) | % | | | | ARTERIAL, | | | | | | POC | | | | | + + + + + + | PCO2 | 26. (L) | MM HG | | | | ARTERIAL, | | | | | | POC | | | | | + + + + + + | PO2 | 127. (H) | MM HG | | | | ARTERIAL, | | | | | | POC | | | | | + + + + + + | BASE EXCESS | 0.2 | MM HG | | | | ART, POC | | | | | + + + + + + | HCO3 | 21. | mmol/l | | | | ARTERIAL, | | | | | | POC | | | | | + + + + + + | TOTAL CO2 | 22. | mmol/l | | | | ART, POC | | | | | + + + + + + + + | Specimen | + + | | + + + + + + + | Performing | Address | City/State/Zipcode | Phone Number | | Organization | | | | + + + + + | [facility] | [address] | [place] [address] | | | PATHOLOGY | [address] | | | + + + + + BLOOD GASES, ARTERIAL - LAB (1998 7:07 AM PDT) + + + + + + | Component | Value | Ref Range | Performed | Pathologist | | | | | At | Signature | + + + + + + | PAT TEMP | 36.7 | [facility]. | | | | ART, POC | | | | | + + + + + + | FIO2 ART, | 0.45 | % | | | | POC | | | | | + + + + + + | PH | 7.41 | % | | | | ARTERIAL, | | | | | | POC | | | | | + + + + + + | PCO2 | 35. | MM HG | | | | ARTERIAL, | | | | | | POC | | | | | + + + + + + | PO2 | 159. (H) | MM HG | | | | ARTERIAL, | | | | | | POC | | | | | + + + + + + | BASE EXCESS | -1.5 | MM HG | | | | ART, POC | | | | | + + + + + + | HCO3 | 22. | mmol/l | | | | ARTERIAL, | | | | | | POC | | | | | + + + + + + | TOTAL CO2 | 23. | mmol/l | | | | ART, POC | | | | | + + + + + + + + | Specimen | + + | | + + + + + + + | Performing | Address | City/State/Zipcode | Phone Number | | Organization | | | | + + + + + | [facility] | [address] | [place] [address] | | | PATHOLOGY | [address] | | | + + + + + CBC TESTS 2 (1998 5:26 AM PDT) + + + + + + | Component | Value | Ref Range | Performed | Pathologist | | | | | At | Signature | + + + + + + | HEMATOCRIT | 42. (L) | % | | | + + + + + + | HEMATOCRIT | SPUN, PHONED | % | | | + + + + + + + + | Specimen | + + | | + + + + + + + | Performing | Address | City/State/Zipcode | Phone Number | | Organization | | | | + + + + + | [facility] | [address] | [place] [address] | | | PATHOLOGY | [address] | | | + + + + + CHEMISTRY TESTS 4 (1998 5:26 AM PDT) + + + + + + | Component | Value | Ref Range | Performed | Pathologist | | | | | At | Signature | + + + + + + | SODIUM, | 136. | mmol/l | | | | PLASMA | | | | | | (LAB) | | | | | + + + + + + | POTASSIUM, | 4.8 | mmol/l | | | | PLASMA | | | | | | (LAB) | | | | | + + + + + + | CHLORIDE, | 109. | mmol/l | | | | PLASMA | | | | | | (LAB) | | | | | + + + + + + | TOTAL CO2, | 21. (L) | mmol/l | | | | PLASMA | | | | | | (LAB) | | | | | + + + + + + | BUN, PLASMA | 39. (H) | mg/dL | | | | (LAB) | | | | | + + + + + + | CREATININE | 0.7 (H) | mg/dL | | | | PLASMA | | | | | | (LAB) | | | | | + + + + + + | GLUCOSE, | 115. (H) | mg/dL | | | | PLASMA | | | | | | (LAB) | | | | | + + + + + + | CALCIUM, | 7.2 (L) | mg/dL | | | | PLASMA | | | | | | (LAB) | | | | | + + + + + + | AST(SGOT) | 21. (L) | U/L | | | + + + + + + | ALK PHOS | 84. (L) | U/L | | | + + + + + + | BILIRUBIN | 7.5 (H) | mg/dL | | | | TOTAL | | | | | + + + + + + | TOTAL | 3.3 (L) | GM/DL | | | | PROTEIN, | | | | | | PLASMA | | | | | | (LAB) | | | | | + + + + + + | ALBUMIN, | 1.8 (L) | GM/DL | | | | PLASMA | | | | | | (LAB) | | | | | + + + + + + + + | Specimen | + + | | + + + + + + + | Performing | Address | City/State/Zipcode | Phone Number | | Organization | | | | + + + + + | [facility] | [address] | [place] [address] | | | PATHOLOGY | [address] | | | + + + + + STUDY TESTS (1998 4:30 AM PDT) + + + + + + | Component | Value | Ref Range | Performed | Pathologist | | | | | At | Signature | + + + + + + | | SEE LAB REPORT IN CHART | | | | | SCREEN | | | | | + + + + + + | [facility] | REFERRED TO [facility] | | | | | COMMENTS | LAB | | | | + + + + + + | SEND-OUT | [id number]. | | | | | DATE | | | | | + + + + + + | KIT NO. | [id number]. | | | | + + + + + + + + | Specimen | + + | | + + + + + + + | Performing | Address | City/State/Zipcode | Phone Number | | Organization | | | | + + + + + | [facility] | [address] | [place] [address] | | | PATHOLOGY | [address] | | | + + + + + CHEMISTRY TESTS 4 (1998 4:30 AM PDT) + + + + + + | Component | Value | Ref Range | Performed | Pathologist | | | | | At | Signature | + + + + + + | METHEMOGLOB | 2.2 | % | | | | IN | | | | | + + + + + + + + | Specimen | + + | | + + + + + + + | Performing | Address | City/State/Zipcode | Phone Number | | Organization | | | | + + + + + | [facility] | [address] | [place] [address] | | | PATHOLOGY | [address] | | | + + + + + BLOOD GASES, ARTERIAL - LAB (1998 4:30 AM PDT) + + + + + + | Component | Value | Ref Range | Performed | Pathologist | | | | | At | Signature | + + + + + + | PAT TEMP | 36.8 | [facility] | | | | ARTERIAL | | | | | + + + + + + | FIO2 | 43% | [facility] | | | | ARTERIAL | | | | | + + + + + + | PH ARTERIAL | 7.44 | [facility] | | | + + + + + + | PCO2 | 31. | MM HG | | | | ARTERIAL | | | | | + + + + + + | PO2 | 125. (H) | MM HG | | | | ARTERIAL | | | | | + + + + + + | BASE EXCESS | -1.1 | MM HG | | | | ARTERIAL | | | | | + + + + + + | HCO3 | 21. | mmol/l | | | | ARTERIAL | | | | | + + + + + + | TOTAL CO2 | 22. | mmol/l | | | | ARTERIAL | | | | | + + + + + + | CALC %O2 | 99. | % O2 Sat | | | | SAT ARTER | | | | | + + + + + + + + | Specimen | + + | | + + + + + + + | Performing | Address | City/State/Zipcode | Phone Number | | Organization | | | | + + + + + | [facility] | [address] | [place] [address] | | | PATHOLOGY | [address] | | | + + + + + BLOOD GASES, ARTERIAL - LAB (1998 2:10 AM PDT) + + + + + + | Component | Value | Ref Range | Performed | Pathologist | | | | | At | Signature | + + + + + + | PAT TEMP | 36.8 | [facility] | | | | ARTERIAL | | | | | + + + + + + | FIO2 | 48. | [facility] | | | | ARTERIAL | | | | | + + + + + + | PH ARTERIAL | 7.41 | [facility] | | | + + + + + + | PCO2 | 36. | MM HG | | | | ARTERIAL | | | | | + + + + + + | PO2 | 123. (H) | MM HG | | | | ARTERIAL | | | | | + + + + + + | BASE EXCESS | -0.8 | MM HG | | | | ARTERIAL | | | | | + + + + + + | HCO3 | 23. | mmol/l | | | | ARTERIAL | | | | | + + + + + + | TOTAL CO2 | 24. | mmol/l | | | | ARTERIAL | | | | | + + + + + + | CALC %O2 | 98.9 | % O2 Sat | | | | SAT ARTER | | | | | + + + + + + + + | Specimen | + + | | + + + + + + + | Performing | Address | City/State/Zipcode | Phone Number | | Organization | | | | + + + + + | [facility] | [address] | [place] [address] | | | PATHOLOGY | [address] | | | + + + + + CHEMISTRY TESTS 4 (1998 2:10 AM PDT) + + + + + + | Component | Value | Ref Range | Performed | Pathologist | | | | | At | Signature | + + + + + + | METHEMOGLOB | 2.4 | % | | | | IN | | | | | + + + + + + + + | Specimen | + + | | + + + + + + + | Performing | Address | City/State/Zipcode | Phone Number | | Organization | | | | + + + + + | [facility] | [address] | [place] [address] | | | PATHOLOGY | [address] | | | + + + + + CHEMISTRY TESTS 4 (1998 1:59 AM PDT) + + + + + + | Component | Value | Ref Range | Performed | Pathologist | | | | | At | Signature | + + + + + + | METHEMOGLOB | 2.3 | % | | | | IN | | | | | + + + + + + + + | Specimen | + + | | + + + + + + + | Performing | Address | City/State/Zipcode | Phone Number | | Organization | | | | + + + + + | [facility] | [address] | [place] [address] | | | PATHOLOGY | [address] | | | + + + + + BLOOD GASES, ARTERIAL - LAB (1998 1:59 AM PDT) + + + + + + | Component | Value | Ref Range | Performed | Pathologist | | | | | At | Signature | + + + + + + | PAT TEMP | 37. | [facility]GREES C. | | | | ARTERIAL | | | | | + + + + + + | FIO2 | 0.5 | DEGRE[facility] C. | | | | ARTERIAL | | | | | + + + + + + | PH ARTERIAL | 7.44 | DEGREES C. | | | + + + + + + | PCO2 | 32. | MM HG | | | | ARTERIAL | | | | | + + + + + + | PO2 | 159. (H) | MM HG | | | | ARTERIAL | | | | | + + + + + + | BASE EXCESS | -0.7 | MM HG | | | | ARTERIAL | | | | | + + + + + + | HCO3 | 22. | mmol/l | | | | ARTERIAL | | | | | + + + + + + | TOTAL CO2 | 23. | mmol/l | | | | ARTERIAL | | | | | + + + + + + | CALC %O2 | 99.5 | % O2 Sat | | | | SAT ARTER | | | | | + + + + + + + + | Specimen | + + | | + + + + + + + | Performing | Address | City/State/Zipcode | Phone Number | | Organization | | | | + + + + + | [facility] | [address] | [place] [address] | | | PATHOLOGY | [address] | | | + + + + + BLOOD GASES, ARTERIAL - LAB (1998 5:52 PM PDT) + + + + + + | Component | Value | Ref Range | Performed | Pathologist | | | | | At | Signature | + + + + + + | PAT TEMP | 36.7 | DEGREES C. | | | | ART, POC | | | | | + + + + + + | FIO2 ART, | 0.5 | % | | | | POC | | | | | + + + + + + | PH | 7.4 | % | | | | ARTERIAL, | | | | | | POC | | | | | + + + + + + | PCO2 | 34. | MM HG | | | | ARTERIAL, | | | | | | POC | | | | | + + + + + + | PO2 | 149. (H) | MM HG | | | | ARTERIAL, | | | | | | POC | | | | | + + + + + + | BASE EXCESS | -2.5 | MM HG | | | | ART, POC | | | | | + + + + + + | HCO3 | 21. | mmol/l | | | | ARTERIAL, | | | | | | POC | | | | | + + + + + + | TOTAL CO2 | 22. | mmol/l | | | | ART, POC | | | | | + + + + + + + + | Specimen | + + | | + + + + + + + | Performing | Address | City/State/Zipcode | Phone Number | | Organization | | | | + + + + + | [facility] | [address] | [place] [address] | | | PATHOLOGY | [address] | | | + + + + + BLOOD GASES, ARTERIAL - LAB (1998 12:35 PM PDT) + + + + + + | Component | Value | Ref Range | Performed | Pathologist | | | | | At | Signature | + + + + + + | PAT TEMP | 36.7 | DEGREES C. | | | | ART, POC | | | | | + + + + + + | FIO2 ART, | 0.45 | % | | | | POC | | | | | + + + + + + | PH | 7.41 | % | | | | ARTERIAL, | | | | | | POC | | | | | + + + + + + | PCO2 | 35. | MM HG | | | | ARTERIAL, | | | | | | POC | | | | | + + + + + + | PO2 | 133. (H) | MM HG | | | | ARTERIAL, | | | | | | POC | | | | | + + + + + + | BASE EXCESS | -1.5 | MM HG | | | | ART, POC | | | | | + + + + + + | HCO3 | 22. | mmol/l | | | | ARTERIAL, | | | | | | POC | | | | | + + + + + + | TOTAL CO2 | 23. | mmol/l | | | | ART, POC | | | | | + + + + + + + + | Specimen | + + | | + + + + + + + | Performing | Address | City/State/Zipcode | Phone Number | | Organization | | | | + + + + + | [facility] | [address] | [place] [address] | | | PATHOLOGY | [address] | | | + + + + + CHEMISTRY TESTS 4 (1998 10:25 AM PDT) + + + + + + | Component | Value | Ref Range | Performed | Pathologist | | | | | At | Signature | + + + + + + | METHEMOGLOB | 2.6 | % | | | | IN | | | | | + + + + + + + + | Specimen | + + | | + + + + + + + | Performing | Address | City/State/Zipcode | Phone Number | | Organization | | | | + + + + + | [facility] | [address] | [place] [address] | | | PATHOLOGY | [address] | | | + + + + + CHEMISTRY TESTS 4 (1998 7:55 AM PDT) + + + + + + | Component | Value | Ref Range | Performed | Pathologist | | | | | At | Signature | + + + + + + | SODIUM, WHL | 137. (L) | mmol/l | | | | BLD,POC | | | | | + + + + + + | POTASSIUM, | 6.5 (*) | mmol/l | | | | WHL BLD, | | | | | | POC | | | | | + + + + + + | CALC | 0.98 (L) | mmol/l | | | | IONIZED CA, | | | | | | WHL BLD, | | | | | | POC | | | | | + + + + + + | ORQUIDEA | 0.96 (L) | mmol/l | | | | IONIZED CA, | | | | | | WHL BLD, | | | | | | POC | | | | | + + + + + + + + | Specimen | + + | | + + + + + + + | Performing | Address | City/State/Zipcode | Phone Number | | Organization | | | | + + + + + | [facility] | [address] | [place] [address] | | | PATHOLOGY | [address] | | | + + + + + BLOOD GASES, ARTERIAL - LAB (1998 7:55 AM PDT) + + + + + + | Component | Value | Ref Range | Performed | Pathologist | | | | | At | Signature | + + + + + + | PAT TEMP | 36.7 | DEGREES C. | | | | ART, POC | | | | | + + + + + + | FIO2 ART, | 0.45 | % | | | | POC | | | | | + + + + + + | PH | 7.46 | % | | | | ARTERIAL, | | | | | | POC | | | | | + + + + + + | PCO2 | 31. | MM HG | | | | ARTERIAL, | | | | | | POC | | | | | + + + + + + | PO2 | 136. (H) | MM HG | | | | ARTERIAL, | | | | | | POC | | | | | + + + + + + | BASE EXCESS | -0.8 | MM HG | | | | ART, POC | | | | | + + + + + + | HCO3 | 21. | mmol/l | | | | ARTERIAL, | | | | | | POC | | | | | + + + + + + | TOTAL CO2 | 22. | mmol/l | | | | ART, POC | | | | | + + + + + + + + | Specimen | + + | | + + + + + + + | Performing | Address | City/State/Zipcode | Phone Number | | Organization | | | | + + + + + | [facility] | [address] | [place] [address] | | | PATHOLOGY | [address] | | | + + + + + CHEMISTRY TESTS 4 (1998 6:30 AM PDT) + + + + + + | Component | Value | Ref Range | Performed | Pathologist | | | | | At | Signature | + + + + + + | METHEMOGLOB | 2.6 | % | | | | IN | | | | | + + + + + + + + | Specimen | + + | | + + + + + + + | Performing | Address | City/State/Zipcode | Phone Number | | Organization | | | | + + + + + | [facility] | [address] | [place] [address] | | | PATHOLOGY | [address] | | | + + + + + CHEMISTRY TESTS 2 (1998 5:30 AM PDT) + + + + + + | Component | Value | Ref Range | Performed | Pathologist | | | | | At | Signature | + + + + + + | TRIGLYCERID | 54. | mg/dL | | | | ES | | | | | + + + + + + + + | Specimen | + + | | + + + + + + + | Performing | Address | City/State/Zipcode | Phone Number | | Organization | | | | + + + + + | [facility] | [address] | [place] [address] | | | PATHOLOGY | [address] | | | + + + + + CHEMISTRY TESTS 4 (1998 5:30 AM PDT) + + + + + + | Component | Value | Ref Range | Performed | Pathologist | | | | | At | Signature | + + + + + + | SODIUM, | 136. | mmol/l | | | | PLASMA | | | | | | (LAB) | | | | | + + + + + + | POTASSIUM, | 4.5 | mmol/l | | | | PLASMA | | | | | | (LAB) | | | | | + + + + + + | CHLORIDE, | 105. | mmol/l | | | | PLASMA | | | | | | (LAB) | | | | | + + + + + + | TOTAL CO2, | 20. (L) | mmol/l | | | | PLASMA | | | | | | (LAB) | | | | | + + + + + + | BUN, PLASMA | 17. (H) | mg/dL | | | | (LAB) | | | | | + + + + + + | CREATININE | 0.6 | mg/dL | | | | PLASMA | | | | | | (LAB) | | | | | + + + + + + | GLUCOSE, | 184. (H) | mg/dL | | | | PLASMA | | | | | | (LAB) | | | | | + + + + + + | CALCIUM, | 7.3 (L) | mg/dL | | | | PLASMA | | | | | | (LAB) | | | | | + + + + + + | MAGNESIUM,P | 1.8 | mg/dL | | | | LASMA | | | | | + + + + + + | PHOSPHORUS, | 5.1 | mg/dL | | | | PLASMA | | | | | | (LAB) | | | | | + + + + + + | AST(SGOT) | 36. | U/L | | | + + + + + + | ALK PHOS | 109. | U/L | | | + + + + + + | BILIRUBIN | 0.2 | mg/dL | | | | DIRECT | | | | | + + + + + + | BILIRUBIN | 7.2 (H) | mg/dL | | | | TOTAL | | | | | + + + + + + | TOTAL | 3.4 (L) | GM/DL | | | | PROTEIN, | | | | | | PLASMA | | | | | | (LAB) | | | | | + + + + + + | ALBUMIN, | 2. (L) | GM/DL | | | | PLASMA | | | | | | (LAB) | | | | | + + + + + + + + | Specimen | + + | | + + + + + + + | Performing | Address | City/State/Zipcode | Phone Number | | Organization | | | | + + + + + | [facility] | [address] | [place] [address] | | | PATHOLOGY | [address] | | | + + + + + BLOOD GASES, ARTERIAL - LAB (1998 5:26 AM PDT) + + + + + + | Component | Value | Ref Range | Performed | Pathologist | | | | | At | Signature | + + + + + + | PAT TEMP | 36.7 | DEGREES C. | | | | ART, POC | | | | | + + + + + + | FIO2 ART, | 0.7 | % | | | | POC | | | | | + + + + + + | PH | 7.43 | % | | | | ARTERIAL, | | | | | | POC | | | | | + + + + + + | PCO2 | 30. | MM HG | | | | ARTERIAL, | | | | | | POC | | | | | + + + + + + | PO2 | 200. (H) | MM HG | | | | ARTERIAL, | | | | | | POC | | | | | + + + + + + | BASE EXCESS | -2.8 | MM HG | | | | ART, POC | | | | | + + + + + + | HCO3 | 20. (L) | mmol/l | | | | ARTERIAL, | | | | | | POC | | | | | + + + + + + | TOTAL CO2 | 21. (L) | mmol/l | | | | ART, POC | | | | | + + + + + + + + | Specimen | + + | | + + + + + + + | Performing | Address | City/State/Zipcode | Phone Number | | Organization | | | | + + + + + | [facility] | [address] | [place] [address] | | | PATHOLOGY | [address] | | | + + + + + BLOOD GASES, ARTERIAL - LAB (1998 12:58 AM PDT) + + + + + + | Component | Value | Ref Range | Performed | Pathologist | | | | | At | Signature | + + + + + + | PAT TEMP | 36.6 | DEGREES C. | | | | ART, POC | | | | | + + + + + + | FIO2 ART, | 1. | % | | | | POC | | | | | + + + + + + | PH | 7.27 (L) | % | | | | ARTERIAL, | | | | | | POC | | | | | + + + + + + | PCO2 | 46. | MM HG | | | | ARTERIAL, | | | | | | POC | | | | | + + + + + + | PO2 | 305. (H) | MM HG | | | | ARTERIAL, | | | | | | POC | | | | | + + + + + + | BASE EXCESS | -5.3 | MM HG | | | | ART, POC | | | | | + + + + + + | HCO3 | 21. | mmol/l | | | | ARTERIAL, | | | | | | POC | | | | | + + + + + + | TOTAL CO2 | 22. | mmol/l | | | | ART, POC | | | | | + + + + + + + + | Specimen | + + | | + + + + + + + | Performing | Address | City/State/Zipcode | Phone Number | | Organization | | | | + + + + + | [facility] | [address] | [place] [address] | | | PATHOLOGY | [address] | | | + + + + + BLOOD GASES, ARTERIAL - LAB (1998 10:26 PM PDT) + + + + + + | Component | Value | Ref Range | Performed | Pathologist | | | | | At | Signature | + + + + + + | PAT TEMP | 37.2 | DEGREES C. | | | | ART, POC | | | | | + + + + + + | FIO2 ART, | 0.76 | % | | | | POC | | | | | + + + + + + | PH | 7.26 (L) | % | | | | ARTERIAL, | | | | | | POC | | | | | + + + + + + | PCO2 | 47. | MM HG | | | | ARTERIAL, | | | | | | POC | | | | | + + + + + + | PO2 | 161. (H) | MM HG | | | | ARTERIAL, | | | | | | POC | | | | | + + + + + + | BASE EXCESS | -5.6 | MM HG | | | | ART, POC | | | | | + + + + + + | HCO3 | 21. | mmol/l | | | | ARTERIAL, | | | | | | POC | | | | | + + + + + + | TOTAL CO2 | 22. | mmol/l | | | | ART, POC | | | | | + + + + + + + + | Specimen | + + | | + + + + + + + | Performing | Address | City/State/Zipcode | Phone Number | | Organization | | | | + + + + + | [facility] | [address] | [place] [address] | | | PATHOLOGY | [address] | | | + + + + + CHEMISTRY TESTS 4 (1998 10:20 PM PDT) + + + + + + | Component | Value | Ref Range | Performed | Pathologist | | | | | At | Signature | + + + + + + | METHEMOGLOB | 2.3 | % | | | | IN | | | | | + + + + + + + + | Specimen | + + | | + + + + + + + | Performing | Address | City/State/Zipcode | Phone Number | | Organization | | | | + + + + + | [facility] | [address] | [place] [address] | | | PATHOLOGY | [address] | | | + + + + + BLOOD GASES, ARTERIAL - LAB (1998 8:04 PM PDT) + + + + + + | Component | Value | Ref Range | Performed | Pathologist | | | | | At | Signature | + + + + + + | PAT TEMP | 36.7 | DEGREES C. | | | | ART, POC | | | | | + + + + + + | FIO2 ART, | 0.63 | % | | | | POC | | | | | + + + + + + | PH | 7.26 (L) | % | | | | ARTERIAL, | | | | | | POC | | | | | + + + + + + | PCO2 | 45. | MM HG | | | | ARTERIAL, | | | | | | POC | | | | | + + + + + + | PO2 | 89. (H) | MM HG | | | | ARTERIAL, | | | | | | POC | | | | | + + + + + + | BASE EXCESS | -6. | MM HG | | | | ART, POC | | | | | + + + + + + | HCO3 | 20. (L) | mmol/l | | | | ARTERIAL, | | | | | | POC | | | | | + + + + + + | TOTAL CO2 | 22. | mmol/l | | | | ART, POC | | | | | + + + + + + + + | Specimen | + + | | + + + + + + + | Performing | Address | City/State/Zipcode | Phone Number | | Organization | | | | + + + + + | [facility] | [address] | [place] [address] | | | PATHOLOGY | [address] | | | + + + + + CHEMISTRY TESTS 4 1998 4:05 PM PDT) + + + + + + | Component | Value | Ref Range | Performed | Pathologist | | | | | At | Signature | + + + + + + | METHEMOGLOB | 1.9 | % | | | | IN | | | | | + + + + + + + + | Specimen | + + | | + + + + + + + | Performing | Address | City/State/Zipcode | Phone Number | | Organization | | | | + + + + + | [facility] | [address] | [place] [address] | | | PATHOLOGY | [address] | | | + + + + + BLOOD GASES, ARTERIAL - LAB (1998 4:03 PM PDT) + + + + + + | Component | Value | Ref Range | Performed | Pathologist | | | | | At | Signature | + + + + + + | PAT TEMP | 36.7 | DEGREES C. | | | | ART, POC | | | | | + + + + + + | FIO2 ART, | 1. | % | | | | POC | | | | | + + + + + + | PH | 7.34 | % | | | | ARTERIAL, | | | | | | POC | | | | | + + + + + + | PCO2 | 41. | MM HG | | | | ARTERIAL, | | | | | | POC | | | | | + + + + + + | PO2 | 243. (H) | MM HG | | | | ARTERIAL, | | | | | | POC | | | | | + + + + + + | BASE EXCESS | -3.6 | MM HG | | | | ART, POC | | | | | + + + + + + | HCO3 | 21. | mmol/l | | | | ARTERIAL, | | | | | | POC | | | | | + + + + + + | TOTAL CO2 | 23. | mmol/l | | | | ART, POC | | | | | + + + + + + + + | Specimen | + + | | + + + + + + + | Performing | Address | City/State/Zipcode | Phone Number | | Organization | | | | + + + + + | [facility] | [address] | [place] [address] | | | PATHOLOGY | [address] | | | + + + + + BLOOD GASES, ARTERIAL - LAB (1998 2:23 PM PDT) + + + + + + | Component | Value | Ref Range | Performed | Pathologist | | | | | At | Signature | + + + + + + | PAT TEMP | 36.7 | DEGREES C. | | | | ART, POC | | | | | + + + + + + | FIO2 ART, | 1. | % | | | | POC | | | | | + + + + + + | PH | 7.36 | % | | | | ARTERIAL, | | | | | | POC | | | | | + + + + + + | PCO2 | 39. | MM HG | | | | ARTERIAL, | | | | | | POC | | | | | + + + + + + | PO2 | 135. (H) | MM HG | | | | ARTERIAL, | | | | | | POC | | | | | + + + + + + | BASE EXCESS | -2.8 | MM HG | | | | ART, POC | | | | | + + + + + + | HCO3 | 22. | mmol/l | | | | ARTERIAL, | | | | | | POC | | | | | + + + + + + | TOTAL CO2 | 23. | mmol/l | | | | ART, POC | | | | | + + + + + + + + | Specimen | + + | | + + + + + + + | Performing | Address | City/State/Zipcode | Phone Number | | Organization | | | | + + + + + | [facility] | [address] | [place] [address] | | | PATHOLOGY | [address] | | | + + + + + CHEMISTRY TESTS 4 (1998 1:30 PM PDT) + + + + + + | Component | Value | Ref Range | Performed | Pathologist | | | | | At | Signature | + + + + + + | METHEMOGLOB | 1.2 | % | | | | IN | | | | | + + + + + + + + | Specimen | + + | | + + + + + + + | Performing | Address | City/State/Zipcode | Phone Number | | Organization | | | | + + + + + | [facility] | [address] | [place] [address] | | | PATHOLOGY | [address] | | | + + + + + BLOOD GASES, ARTERIAL - LAB (1998 1:27 PM PDT) + + + + + + | Component | Value | Ref Range | Performed | Pathologist | | | | | At | Signature | + + + + + + | PAT TEMP | 36.7 | DEGREES C. | | | | ART, POC | | | | | + + + + + + | FIO2 ART, | 1. | % | | | | POC | | | | | + + + + + + | PH | 7.32 | % | | | | ARTERIAL, | | | | | | POC | | | | | + + + + + + | PCO2 | 42. | MM HG | | | | ARTERIAL, | | | | | | POC | | | | | + + + + + + | PO2 | 73. | MM HG | | | | ARTERIAL, | | | | | | POC | | | | | + + + + + + | BASE EXCESS | -3.7 | MM HG | | | | ART, POC | | | | | + + + + + + | HCO3 | 22. | mmol/l | | | | ARTERIAL, | | | | | | POC | | | | | + + + + + + | TOTAL CO2 | 23. | mmol/l | | | | ART, POC | | | | | + + + + + + + + | Specimen | + + | | + + + + + + + | Performing | Address | City/State/Zipcode | Phone Number | | Organization | | | | + + + + + | [facility] | [address] | [place] [address] | | | PATHOLOGY | [address] | | | + + + + + CBC TESTS 2 (1998 12:51 PM PDT) + + + + + + | Component | Value | Ref Range | Performed | Pathologist | | | | | At | Signature | + + + + + + | HEMATOCRIT, | 45. | % | | | | POC | | | | | + + + + + + + + | Specimen | + + | | + + + + + + + | Performing | Address | City/State/Zipcode | Phone Number | | Organization | | | | + + + + + | [facility] | [address] | [place] [address] | | | PATHOLOGY | [address] | | | + + + + + BLOOD GASES, ARTERIAL - LAB (1998 12:51 PM PDT) + + + + + + | Component | Value | Ref Range | Performed | Pathologist | | | | | At | Signature | + + + + + + | PAT TEMP | 36.6 | DEGREES C. | | | | ART, POC | | | | | + + + + + + | FIO2 ART, | 1. | % | | | | POC | | | | | + + + + + + | PH | 7.25 (*) | % | | | | ARTERIAL, | | | | | | POC | | | | | + + + + + + | PCO2 | 51. | MM HG | | | | ARTERIAL, | | | | | | POC | | | | | + + + + + + | PO2 | 152. (H) | MM HG | | | | ARTERIAL, | | | | | | POC | | | | | + + + + + + | BASE EXCESS | -4.6 | MM HG | | | | ART, POC | | | | | + + + + + + | HCO3 | 23. | mmol/l | | | | ARTERIAL, | | | | | | POC | | | | | + + + + + + | TOTAL CO2 | 24. | mmol/l | | | | ART, POC | | | | | + + + + + + + + | Specimen | + + | | + + + + + + + | Performing | Address | City/State/Zipcode | Phone Number | | Organization | | | | + + + + + | [facility] | [address] | [place] [address] | | | PATHOLOGY | [address] | | | + + + + + CHEMISTRY TESTS 4 (1998 12:50 PM PDT) + + + + + + | Component | Value | Ref Range | Performed | Pathologist | | | | | At | Signature | + + + + + + | METHEMOGLOB | 1.1 | % | | | | IN | | | | | + + + + + + + + | Specimen | + + | | + + + + + + + | Performing | Address | City/State/Zipcode | Phone Number | | Organization | | | | + + + + + | [facility] | [address] | [place] [address] | | | PATHOLOGY | [address] | | | + + + + + BLOOD GASES, ARTERIAL - LAB (1998 11:55 AM PDT) + + + + + + | Component | Value | Ref Range | Performed | Pathologist | | | | | At | Signature | + + + + + + | PAT TEMP | 36.6 | [facility]GRE[facility] C. | | | | ARTERIAL | | | | | + + + + + + | FIO2 | 100% | [facility]GRE[facility] C. | | | | ARTERIAL | | | | | + + + + + + | PH ARTERIAL | 7.3 | [facility]GRE[facility] C. | | | + + + + + + | PCO2 | 47. | MM HG | | | | ARTERIAL | | | | | + + + + + + | PO2 | 153. (H) | MM HG | | | | ARTERIAL | | | | | + + + + + + | BASE EXCESS | -2.9 | MM HG | | | | ARTERIAL | | | | | + + + + + + | HCO3 | 23. | mmol/l | | | | ARTERIAL | | | | | + + + + + + | TOTAL CO2 | 25. | mmol/l | | | | ARTERIAL | | | | | + + + + + + | CALC %O2 | 99.1 | % O2 Sat | | | | SAT ARTER | | | | | + + + + + + + + | Specimen | + + | | + + + + + + + | Performing | Address | City/State/Zipcode | Phone Number | | Organization | | | | + + + + + | [facility] | [address] | [place] [address] | | | PATHOLOGY | [address] | | | + + + + + CBC TESTS 2 (1998 11:55 AM PDT) + + + + + + | Component | Value | Ref Range | Performed | Pathologist | | | | | At | Signature | + + + + + + | HEMATOCRIT | 49. | % | | | + + + + + + | HEMATOCRIT | SPUN | % | | | + + + + + + + + | Specimen | + + | | + + + + + + + | Performing | Address | City/State/Zipcode | Phone Number | | Organization | | | | + + + + + | [facility] | [address] | [place] [address] | | | PATHOLOGY | [address] | | | + + + + + BLOOD GASES, ARTERIAL - LAB (1998 10:00 AM PDT) + + + + + + | Component | Value | Ref Range | Performed | Pathologist | | | | | At | Signature | + + + + + + | PAT TEMP | 36.8 | [facility] | | | | ARTERIAL | | | | | + + + + + + | FIO2 | 88% | [facility] | | | | ARTERIAL | | | | | + + + + + + | PH ARTERIAL | 7.27 (L) | [facility] | | | + + + + + + | PCO2 | 51. | [facility] | | | | ARTERIAL | | | | | + + + + + + | PO2 | 179. (H) | [facility] | | | | ARTERIAL | | | | | + + + + + + | BASE EXCESS | -3.4 | [facility] | | | | ARTERIAL | | | | | + + + + + + | HCO3 | 24. | mmol/l | | | | ARTERIAL | | | | | + + + + + + | TOTAL CO2 | 25. | mmol/l | | | | ARTERIAL | | | | | + + + + + + | CALC %O2 | 99.4 | % O2 Sat | | | | SAT ARTER | | | | | + + + + + + + + | Specimen | + + | | + + + + + + + | Performing | Address | City/State/Zipcode | Phone Number | | Organization | | | | + + + + + | [facility] | [address] | [place] [address] | | | PATHOLOGY | [address] | | | + + + + + BLOOD GASES, ARTERIAL - LAB (1998 8:05 AM PDT) + + + + + + | Component | Value | Ref Range | Performed | Pathologist | | | | | At | Signature | + + + + + + | PAT TEMP | 36.7 | [facility] | | | | ARTERIAL | | | | | + + + + + + | FIO2 | 72% | [facility] | | | | ARTERIAL | | | | | + + + + + + | PH ARTERIAL | 7.27 (L) | [facility] | | | + + + + + + | PCO2 | 46. | [facility] | | | | ARTERIAL | | | | | + + + + + + | PO2 | 113. (H) | [facility] | | | | ARTERIAL | | | | | + + + + + + | BASE EXCESS | -5.5 | [facility] | | | | ARTERIAL | | | | | + + + + + + | HCO3 | 21. | mmol/l | | | | ARTERIAL | | | | | + + + + + + | TOTAL CO2 | 23. | mmol/l | | | | ARTERIAL | | | | | + + + + + + | CALC %O2 | 97.7 | % O2 Sat | | | | SAT ARTER | | | | | + + + + + + + + | Specimen | + + | | + + + + + + + | Performing | Address | City/State/Zipcode | Phone Number | | Organization | | | | + + + + + | [facility] | [address] | [place] [address] | | | PATHOLOGY | [address] | | | + + + + + CHEMISTRY TESTS 4 (1998 5:39 AM PDT) + + + + + + | Component | Value | Ref Range | Performed | Pathologist | | | | | At | Signature | + + + + + + | SODIUM, | 133. (L) | mmol/l | | | | PLASMA | | | | | | (LAB) | | | | | + + + + + + | POTASSIUM, | 4.3 | mmol/l | | | | PLASMA | | | | | | (LAB) | | | | | + + + + + + | CHLORIDE, | 111. (H) | mmol/l | | | | PLASMA | | | | | | (LAB) | | | | | + + + + + + | TOTAL CO2, | 22. (L) | mmol/l | | | | PLASMA | | | | | | (LAB) | | | | | + + + + + + | BUN, PLASMA | 11. | mg/dL | | | | (LAB) | | | | | + + + + + + | CREATININE | 0.7 (H) | mg/dL | | | | PLASMA | | | | | | (LAB) | | | | | + + + + + + | GLUCOSE, | 107. (H) | mg/dL | | | | PLASMA | | | | | | (LAB) | | | | | + + + + + + + + | Specimen | + + | | + + + + + + + | Performing | Address | City/State/Zipcode | Phone Number | | Organization | | | | + + + + + | [facility] | [address] | [place] [address] | | | PATHOLOGY | [address] | | | + + + + + BLOOD GASES, ARTERIAL - LAB (1998 5:35 AM PDT) + + + + + + | Component | Value | Ref Range | Performed | Pathologist | | | | | At | Signature | + + + + + + | PAT TEMP | 36.8 | [facility] | | | | ARTERIAL | | | | | + + + + + + | FIO2 | 76% | [facility] | | | | ARTERIAL | | | | | + + + + + + | PH ARTERIAL | 7.29 (L) | [facility] | | | + + + + + + | PCO2 | 48. | [facility] | | | | ARTERIAL | | | | | + + + + + + | PO2 | 179. (H) | [facility] | | | | ARTERIAL | | | | | + + + + + + | BASE EXCESS | -3.4 | [facility] | | | | ARTERIAL | | | | | + + + + + + | HCO3 | 23. | mmol/l | | | | ARTERIAL | | | | | + + + + + + | TOTAL CO2 | 25. | mmol/l | | | | ARTERIAL | | | | | + + + + + + | CALC %O2 | 99.4 | % O2 Sat | | | | SAT ARTER | | | | | + + + + + + + + | Specimen | + + | | + + + + + + + | Performing | Address | City/State/Zipcode | Phone Number | | Organization | | | | + + + + + | [facility] | [address] | [place] [address] | | | PATHOLOGY | [address] | | | + + + + + CHEMISTRY TESTS 4 (1998 1:30 AM PDT) + + + + + + | Component | Value | Ref Range | Performed | Pathologist | | | | | At | Signature | + + + + + + | SODIUM, WHL | 135. (L) | mmol/l | | | | BLD,POC | | | | | + + + + + + | POTASSIUM, | 4.4 | mmol/l | | | | WHL BLD, | | | | | | POC | | | | | + + + + + + | CALC | 1.1 (L) | mmol/l | | | | IONIZED CA, | | | | | | WHL BLD, | | | | | | POC | | | | | + + + + + + | ORQUIDEA | 1.14 | mmol/l | | | | IONIZED CA, | | | | | | WHL BLD, | | | | | | POC | | | | | + + + + + + + + | Specimen | + + | | + + + + + + + | Performing | Address | City/State/Zipcode | Phone Number | | Organization | | | | + + + + + | [facility] | [address] | [place] [address] | | | PATHOLOGY | [address] | | | + + + + + BLOOD GASES, ARTERIAL - LAB (1998 1:30 AM PDT) + + + + + + | Component | Value | Ref Range | Performed | Pathologist | | | | | At | Signature | + + + + + + | PAT TEMP | 36.8 | DEGREES C. | | | | ART, POC | | | | | + + + + + + | FIO2 ART, | 0.36 | % | | | | POC | | | | | + + + + + + | PH | 7.34 | % | | | | ARTERIAL, | | | | | | POC | | | | | + + + + + + | PCO2 | 38. | MM HG | | | | ARTERIAL, | | | | | | POC | | | | | + + + + + + | PO2 | 75. | MM HG | | | | ARTERIAL, | | | | | | POC | | | | | + + + + + + | BASE EXCESS | -4.3 | MM HG | | | | ART, POC | | | | | + + + + + + | HCO3 | 20. (L) | mmol/l | | | | ARTERIAL, | | | | | | POC | | | | | + + + + + + | TOTAL CO2 | 21. (L) | mmol/l | | | | ART, POC | | | | | + + + + + + + + | Specimen | + + | | + + + + + + + | Performing | Address | City/State/Zipcode | Phone Number | | Organization | | | | + + + + + | [facility] | [address] | [place] [address] | | | PATHOLOGY | [address] | | | + + + + + BLOOD GASES, ARTERIAL - LAB (1998 5:53 PM PDT) + + + + + + | Component | Value | Ref Range | Performed | Pathologist | | | | | At | Signature | + + + + + + | PAT TEMP | 36.5 | DEGREES C. | | | | ART, POC | | | | | + + + + + + | FIO2 ART, | 0.36 | % | | | | POC | | | | | + + + + + + | PH | 7.33 | % | | | | ARTERIAL, | | | | | | POC | | | | | + + + + + + | PCO2 | 40. | MM HG | | | | ARTERIAL, | | | | | | POC | | | | | + + + + + + | PO2 | 76. (H) | MM HG | | | | ARTERIAL, | | | | | | POC | | | | | + + + + + + | BASE EXCESS | -4.5 | MM HG | | | | ART, POC | | | | | + + + + + + | HCO3 | 20. (L) | mmol/l | | | | ARTERIAL, | | | | | | POC | | | | | + + + + + + | TOTAL CO2 | 22. | mmol/l | | | | ART, POC | | | | | + + + + + + + + | Specimen | + + | | + + + + + + + | Performing | Address | City/State/Zipcode | Phone Number | | Organization | | | | + + + + + | [facility] | [address] | [place] [address] | | | PATHOLOGY | [address] | | | + + + + + THERAPEUTIC DRUG TESTS 2 (1998 4:10 PM PDT) + + + + + + | Component | Value | Ref Range | Performed | Pathologist | | | | | At | Signature | + + + + + + | AMPHETAMINE | NEGATIVE | | | | | , | | | | | | URINE(UDC) | | | | | + + + + + + | COCAINE, | NEGATIVE | | | | | URINE (UDC) | | | | | + + + + + + | OPIATES, | NEGATIVE | | | | | URINE (UDC) | | | | | + + + + + + | CANNABINOID | NEGATIVE | | | | | S, URINE | | | | | | (UDC) | | | | | + + + + + + + + | Specimen | + + | | + + + + + + + | Performing | Address | City/State/Zipcode | Phone Number | | Organization | | | | + + + + + | [facility] | [address] | [place] [address] | | | PATHOLOGY | [address] | | | + + + + + BLOOD GASES, ARTERIAL - LAB (1998 2:08 PM PDT) + + + + + + | Component | Value | Ref Range | Performed | Pathologist | | | | | At | Signature | + + + + + + | PAT TEMP | 36.4 | DEGREES C. | | | | ART, POC | | | | | + + + + + + | FIO2 ART, | 0.63 | % | | | | POC | | | | | + + + + + + | PH | 7.33 | % | | | | ARTERIAL, | | | | | | POC | | | | | + + + + + + | PCO2 | 40. | MM HG | | | | ARTERIAL, | | | | | | POC | | | | | + + + + + + | PO2 | 107. (H) | MM HG | | | | ARTERIAL, | | | | | | POC | | | | | + + + + + + | BASE EXCESS | -4.3 | MM HG | | | | ART, POC | | | | | + + + + + + | HCO3 | 21. | mmol/l | | | | ARTERIAL, | | | | | | POC | | | | | + + + + + + | TOTAL CO2 | 22. | mmol/l | | | | ART, POC | | | | | + + + + + + + + | Specimen | + + | | + + + + + + + | Performing | Address | City/State/Zipcode | Phone Number | | Organization | | | | + + + + + | [facility] | [address] | [place] [address] | | | PATHOLOGY | [address] | | | + + + + + BLOOD GASES, ARTERIAL - LAB (1998 11:13 AM PDT) + + + + + + | Component | Value | Ref Range | Performed | Pathologist | | | | | At | Signature | + + + + + + | PAT TEMP | 36.5 | DEGREES C. | | | | ART, POC | | | | | + + + + + + | FIO2 ART, | 0.53 | % | | | | POC | | | | | + + + + + + | PH | 7.31 | % | | | | ARTERIAL, | | | | | | POC | | | | | + + + + + + | PCO2 | 42. | MM HG | | | | ARTERIAL, | | | | | | POC | | | | | + + + + + + | PO2 | 51. | MM HG | | | | ARTERIAL, | | | | | | POC | | | | | + + + + + + | BASE EXCESS | -4.3 | MM HG | | | | ART, POC | | | | | + + + + + + | HCO3 | 21. | mmol/l | | | | ARTERIAL, | | | | | | POC | | | | | + + + + + + | TOTAL CO2 | 23. | mmol/l | | | | ART, POC | | | | | + + + + + + + + | Specimen | + + | | + + + + + + + | Performing | Address | City/State/Zipcode | Phone Number | | Organization | | | | + + + + + | [facility] | [address] | [place] [address] | | | PATHOLOGY | [address] | | | + + + + + BLOOD GASES, ARTERIAL - LAB (1998 8:38 AM PDT) + + + + + + | Component | Value | Ref Range | Performed | Pathologist | | | | | At | Signature | + + + + + + | PAT TEMP | 36.8 | DEGREES C. | | | | ART, POC | | | | | + + + + + + | FIO2 ART, | 1. | % | | | | POC | | | | | + + + + + + | PH | 7.4 | % | | | | ARTERIAL, | | | | | | POC | | | | | + + + + + + | PCO2 | 34. | MM HG | | | | ARTERIAL, | | | | | | POC | | | | | + + + + + + | PO2 | 129. (H) | MM HG | | | | ARTERIAL, | | | | | | POC | | | | | + + + + + + | BASE EXCESS | -2.5 | MM HG | | | | ART, POC | | | | | + + + + + + | HCO3 | 21. | mmol/l | | | | ARTERIAL, | | | | | | POC | | | | | + + + + + + | TOTAL CO2 | 22. | mmol/l | | | | ART, POC | | | | | + + + + + + + + | Specimen | + + | | + + + + + + + | Performing | Address | City/State/Zipcode | Phone Number | | Organization | | | | + + + + + | [facility] | [address] | [place] [address] | | | PATHOLOGY | [address] | | | + + + + + CBC TESTS 2 (1998 7:55 AM PDT) + + + + + + | Component | Value | Ref Range | Performed | Pathologist | | | | | At | Signature | + + + + + + | WHITE CELL | 12.1 | K/CU MM | | | | COUNT | | | | | + + + + + + | WHITE CELL | WBC CORRECTED FOR NRBC | K/CU MM | | | | COUNT | | | | | + + + + + + | RED CELL | 3.95 | M/CU MM | | | | COUNT | | | | | + + + + + + | HEMOGLOBIN | 15.6 | GM/DL | | | + + + + + + | HEMATOCRIT | 43.9 | % | | | + + + + + + | MCV | 111.1 (H) | FL | | | + + + + + + | MCH | 39.6 (H) | PG | | | + + + + + + | MCHC | 35.6 (H) | GM/DL | | | + + + + + + | RDW | 16.7 (H) | % | | | + + + + + + | PLATELET | 214. (L) | K/CU MM | | | | COUNT | | | | | + + + + + + | PLATELET | FINAL REPORT, RESULT | K/CU MM | | | | COUNT | VERIFIED | | | | + + + + + + | MPV | 7.6 | FL | | | + + + + + + | NEUTROPHIL | 49. (H) | % | | | | % | | | | | + + + + + + | NEUTROPHIL | PRELIMINARY DIFF, FINAL | % | | | | % | TO FOLLOW | | | | + + + + + + | BANDS % | 1. | % | | | + + + + + + | LYMPHOCYTE | 45. (L) | % | | | | % | | | | | + + + + + + | LYMPHOCYTE | INCORRECT; | % SEE MANUAL | | | | % | | COUNT | | | + + + + + + | MONOCYTE % | 5. | % | | | + + + + + + | MONOCYTE % | INCORRECT; | % SEE MANUAL | | | | | | COUNT | | | + + + + + + | EOS % | 1. | % | | | + + + + + + | EOS % | INCORRECT; | % SEE MANUAL | | | | | | COUNT | | | + + + + + + | BASO % | 0. | % | | | + + + + + + | BASO % | INCORRECT; | % SEE MANUAL | | | | | | COUNT | | | + + + + + + | NEUTROPHIL | 6.4 | K/CU MM | | | | # | | | | | + + + + + + | NEUTROPHIL | INCORRECT; | K/CU MM SEE | | | | # | | MANUAL COUNT | | | + + + + + + | LYMPHOCYTE | 5.8 | K/CU MM | | | | # | | | | | + + + + + + | LYMPHOCYTE | INCORRECT; | K/CU MM SEE | | | | # | | MANUAL COUNT | | | + + + + + + | LYMPHOCYTES | 44. (H) | % | | | + + + + + + | MONOCYTE # | 0.6 | K/CU MM | | | + + + + + + | MONOCYTE # | INCORRECT; | K/CU MM SEE | | | | | | MANUAL COUNT | | | + + + + + + | EOS # | 0.1 | K/CU MM | | | + + + + + + | EOS # | INCORRECT; | K/CU MM SEE | | | | | | MANUAL COUNT | | | + + + + + + | BASO # | 0. | K/CU MM | | | + + + + + + | BASO # | INCORRECT; | K/CU MM SEE | | | | | | MANUAL COUNT | | | + + + + + + | NRBC | 7. | /100 WBC | | | + + + + + + | RBC FLAG | | K/CU MM | | | + + + + + + | DIFFERENTIA | 100. | Cells Counted | | | | L, FINAL | | | | | + + + + + + | SEGMENTED | 50. | % | | | | NEUTROPHIL | | | | | + + + + + + | BASOPHILS | 1. | % | | | + + + + + + | MONOCYTES | 4. | % | | | + + + + + + | PLATELET | LOW | % | | | | ESTIMATE | | | | | + + + + + + | ANISOCYTOSI | SLIGHT | % | | | | S | | | | | + + + + + + | POIKLIOCYTO | SLIGHT | % | | | | SIS | | | | | + + + + + + | MACROCYTOSI | MODERATE | % | | | | S | | | | | + + + + + + | POLYCHROMAS | SLIGHT | % | | | | IA | | | | | + + + + + + | CBC | FEW SCHISTOCYTES PRESENT | % | | | | COMMENTS | | | | | + + + + + + | DIFF | FEW CAITLIN CELLS PRESENT | % | | | | COMMENTS | | | | | + + + + + + + + | Specimen | + + | | + + + + + + + | Performing | Address | City/State/Zipcode | Phone Number | | Organization | | | | + + + + + | [facility] | [address] | [place] [address] | | | PATHOLOGY | [address] | | | + + + + + CULTURE, BLOOD BACTI & YEAST (1998 7:55 AM PDT) + + + + + + | Component | Value | Ref Range | Performed | Pathologist | | | | | At | Signature | + + + + + + | CULTURE | Cult & Susc Bld | | | | | RESULT | ""Diagnosis | | | | | | NEWBORNTest Ordered | | | | | | BLOOD | | | | | | CULTUREOrdering Loc | | | | | | DNCCSpec Set Up | | | | | | Date 07/29Spec Set Up | | | | | | Time 08:13Source Body | | | | | | Site BLOODReport | | | | | | Status | | | | | | FINALPrelim Result | | | | | | NO BACTERIA/YEAST | | | | | | ISOLATED TO DATECulture | | | | | | Result NO BACTERIA | | | | | | OR YEAST ISOLATEDDate | | | | | | Of Final Re | | | | | | [id number] | | | | + + + + + + + + | Specimen | + + | | + + + + + + + | Performing | Address | City/State/Zipcode | Phone Number | | Organization | | | | + + + + + | [facility] | [address] | [place] [address] | | | PATHOLOGY | [address] | | | + + + + + BLOOD GASES, ARTERIAL - LAB (1998 7:54 AM PDT) + + + + + + | Component | Value | Ref Range | Performed | Pathologist | | | | | At | Signature | + + + + + + | PAT TEMP | 36.8 | DEGREES C. | | | | ART, POC | | | | | + + + + + + | FIO2 ART, | 100. | % | | | | POC | | | | | + + + + + + | PH | 7.22 (*) | % | | | | ARTERIAL, | | | | | | POC | | | | | + + + + + + | PCO2 | 54. | MM HG | | | | ARTERIAL, | | | | | | POC | | | | | + + + + + + | PO2 | 59. | MM HG | | | | ARTERIAL, | | | | | | POC | | | | | + + + + + + | BASE EXCESS | -6.1 | MM HG | | | | ART, POC | | | | | + + + + + + | HCO3 | 22. | mmol/l | | | | ARTERIAL, | | | | | | POC | | | | | + + + + + + | TOTAL CO2 | 23. | mmol/l | | | | ART, POC | | | | | + + + + + + + + | Specimen | + + | | + + + + + + + | Performing | Address | City/State/Zipcode | Phone Number | | Organization | | | | + + + + + | [facility] | [address] | [place] [address] | | | PATHOLOGY | [address] | | | + + + + + TRANSFUSION MEDICINE TESTS (1998 6:50 AM PDT) + + + + + + | Component | Value | Ref Range | Performed | Pathologist | | | | | At | Signature | + + + + + + | RH TYPE | POS | | | | + + + + + + | CHANDAN , | NEGATIVE | | | | | DIRECT | | | | | | TANISHA | | | | | + + + + + + | SPEC TYPE | CORD BLOOD SPECIMEN | | | | + + + + + + + + | Specimen | + + | | + + + + + + + | Performing | Address | City/State/Zipcode | Phone Number | | Organization | | | | + + + + + | [facility] | [address] | [place] [address] | | | PATHOLOGY | [address] | | | + + + + + BLOOD GASES, ARTERIAL - LAB (1998 6:50 AM PDT) + + + + + + | Component | Value | Ref Range | Performed | Pathologist | | | | | At | Signature | + + + + + + | BLOOD GAS | CORD BLOOD;RSLTS PHONED | | | | | ARTERIAL | | | | | + + + + + + | PAT TEMP | NG | DEGREES C. | | | | ARTERIAL | | | | | + + + + + + | FIO2 | NG | DEGREES C. | | | | ARTERIAL | | | | | + + + + + + | PH ARTERIAL | 7.24 (*) | [facility]GREES C. | | | + + + + + + | PH ARTERIAL | PHONED | [facility]GREES C. | | | + + + + + + | PCO2 | 60. | MM HG | | | | ARTERIAL | | | | | + + + + + + | PO2 | 15. (*) | MM HG | | | | ARTERIAL | | | | | + + + + + + | PO2 | PHONED | MM HG | | | | ARTERIAL | | | | | + + + + + + | BASE EXCESS | -2.5 | MM HG | | | | ARTERIAL | | | | | + + + + + + | HCO3 | 26. | mmol/l | | | | ARTERIAL | | | | | + + + + + + | TOTAL CO2 | 27. | mmol/l | | | | ARTERIAL | | | | | + + + + + + | CALC %O2 | 14.8 | % O2 Sat | | | | SAT ARTER | | | | | + + + + + + + + | Specimen | + + | | + + + + + + + | Performing | Address | City/State/Zipcode | Phone Number | | Organization | | | | + + + + + | [facility] | [address] | [place] [address] | | | PATHOLOGY | [address] | | | + + + + + documented in this encounter Visit Diagnoses Not on filedocumented in this encounter
--- OUTSIDE RECORDS SUMMARY | ~2019-07-04 | XMS | Encounter Summary ---
Demographics + + + | Address | [address] | | | [place] [address] | + + + | Preferred Language | Unknown | + + + | Marital Status | Single | + + + | Congregation Affiliation | NON | + + + [...] [place], [place] | | | | | [address] | | + + + + + Care Team Providers + +------+ + | Care Fiber Drier Operator Name | Role | Phone | + +------+ + PCP | Unavailable | + +------+ + Encounter Details +--------+ + + + + | Date | Type | Department | Care Team | Description | +--------+ + + + + | 07/29/ | Results | | Other, Faculty | | | 1998 | Only | | [phone] | | +--------+ + + + + [...] | | + +---------+ + + | [facility] DE[facility] | | | | | [...] | | + +---------+ + + | [facility] | | | | [...] + + + | Ordered by FABRICIO OSORIO | | + + + + +---------+ + + | Performing | Address | City/State/Zipcode | Phone Number | | Organization | | | | + +---------+ + + | [facility] DE[facility]MENT OF | | | | [...] | | | | [place], | [place], | | | | [...] | | + +---------+ + + | [facility] | | | | [...] | | + +---------+ + + | [facility] | | | | [...] | | + +---------+ + + | [facility] | | | | [...] | | + +---------+ + + | [facility] | | | | [...] | | | | | | ACC# [id number], DONE ON | | | | | | 29-JUL-98 AT 10:15HAVE | | | | | | BEEN REPORTED ON | | | | | | THE:CHEST 1 PORTABLE, | | | | | | ACC# [id number], DONE ON | | | | | [...]
--- OUTSIDE RECORDS SUMMARY | ~2019-07-04 | XMS | Encounter Summary ---
Demographics + + + | Address | [address] | | | [place] [address] | + + + | Preferred Language | Unknown | + + + | Marital Status | Single | + + + | Gnosticist Affiliation | NON | + + + | Race | White | + + + | Ethnic Group | Not or | + + + Author + + + | Author | [facility] | + + + | Organization | [facility] | + + + | Address | Unknown | + + + | Phone | Unavailable | + + + Support + + + + + | Name | Relationship | Address | Phone | + + + + + | Tasha Keane | ECON | [address] | Unavailable | | | | [place] | | | | | [address] | | + + + + + Care Team Providers + +------+ + | Care Wind Farm Operations Manager Name | Role | Phone | [...] [id number] | | | | | | [place], [place] | | | | | | [address] | | | | | | [phone] | | | +--------+ + + + [...] + + + + | SEND-OUT | [id number]. | | | | | DATE | | | | | + + + + + + | KIT NO. | [id number]. | | | | + + + + + + + + | Specimen | + + | | + + + + + + + | Performing | Address | City/State/Zipcode | Phone Number | | Organization | | | | + + + + + | [facility] | [address] | [place] [address] | | | PATHOLOGY | [address] [...] | + + + + + | [facility] | [address] | [place] [address] | | | PATHOLOGY | [address] [...] | + + + + + | [facility] | [address] | [place] [address] | | | PATHOLOGY | [address] [...] | + + + + + | [facility] | [address] | [place] [address] | | | PATHOLOGY | [address] [...] | + + + + + | [facility] | [address] | [place] [address] | | | PATHOLOGY | [address] [...] | + + + + + | [facility] | [address] | [place] [address] | | | PATHOLOGY | [address] [...] | + + + + + | [facility] | [address] | [place], [place] [address] | | | PATHOLOGY | [address] [...] | + + + + + | [facility] | [address] | [place] [address] | | | PATHOLOGY | [address] [...] | + + + + + | [facility] | [address] | [place] [address] | | | PATHOLOGY | [address] [...] | + + + + + | [facility] | [address] | [place] [address] | | | PATHOLOGY | [address] [...] | + + + + + | [facility] | [address] | [place] [address] | | | PATHOLOGY | [address] [...] | + + + + + | [facility] | [address] | [place] [address] | | | PATHOLOGY | [address] [...] | + + + + + | [facility] | [address] | [place] [address] | | | PATHOLOGY | [address] [...] | + + + + + | [facility] | [address] | [place] [address] | | | PATHOLOGY | [address] [...] | + + + + + | [facility] | [address] | [place] [address] | | | PATHOLOGY | [address] [...] | + + + + + | [facility] | [address] | [place] [address] | | | PATHOLOGY | [address] [...] | + + + + + | [facility] | [address] | [place] [address] | | | PATHOLOGY | [address] [...] | + + + + + | [facility] | [address] | [place] [address] | | | PATHOLOGY | [address] [...] | + + + + + | [facility] | [address] | [place] [address] | | | PATHOLOGY | [address] [...] | + + + + + | [facility] | [address] | [place] [address] | | | PATHOLOGY | [address] [...] | + + + + + | [facility] | [address] | [place] [address] | | | PATHOLOGY | [address] [...] | + + + + + | [facility] | [address] | [place] [address] | | | PATHOLOGY | [address] [...] | + + + + + | [facility] | [address] | [place] [address] | | | PATHOLOGY | [address] [...] | + + + + + | [facility] | [address] | [place] [address] | | | PATHOLOGY | [address] [...] | + + + + + | [facility] | [address] | [place] [address] | | | PATHOLOGY | [address] [...] | + + + + + | [facility] | [address] | [place] [address] | | | PATHOLOGY | [address] [...] | + + + + + | [facility] | [address] | [place] [address] | | | PATHOLOGY | [address] [...] | + + + + + | [facility] | [address] | [place] [address] | | | PATHOLOGY | [address] [...] | + + + + + | [facility] | [address] | [place] [address] | | | PATHOLOGY | [address] [...] | + + + + + | [facility] | [address] | [place] [address] | | | PATHOLOGY | [address] [...] | + + + + + | [facility] | [address] | [place] [address] | | | PATHOLOGY | [address] [...] | + + + + + | [facility] | [address] | [place] [address] | | | PATHOLOGY | [address] [...] + + + + | SEND-OUT | [id number]. | | | | | DATE | | | | | + + + + + + | KIT NO. | [id number]. | | | | + + + + + + + + | Specimen | + + | | + + + + + + + | Performing | Address | City/State/Zipcode | Phone Number | | Organization | | | | + + + + + | [facility] | [address] | [place] [address] | | | PATHOLOGY | [address] [...] | + + + + + | [facility] | [address] | [place] [address] | | | PATHOLOGY | [address] [...] | + + + + + | [facility] | [address] | [place] [address] | | | PATHOLOGY | [address] [...] | + + + + + | [facility] | [address] | [place] [address] | | | PATHOLOGY | [address] [...] | + + + + + | [facility] | [address] | [place] [address] | | | PATHOLOGY | [address] [...] | + + + + + | [facility] | [address] | [place] [address] | | | PATHOLOGY | [address] [...] | + + + + + | [facility] | [address] | [place] [address] | | | PATHOLOGY | [address] [...] | + + + + + | [facility] | [address] | [place] [address] | | | PATHOLOGY | [address] [...] | + + + + + | [facility] | [address] | [place] [address] | | | PATHOLOGY | [address] [...] | + + + + + | [facility] | [address] | [place] [address] | | | PATHOLOGY | [address] [...] | + + + + + | [facility] | [address] | [place] [address] | | | PATHOLOGY | [address] [...] | + + + + + | [facility] | [address] | [place] [address] | | | PATHOLOGY | [address] [...] | + + + + + | [facility] | [address] | [place] [address] | | | PATHOLOGY | [address] [...] | + + + + + | [facility] | [address] | [place] [address] | | | PATHOLOGY | [address] [...] | [facility] | [address] | [place] [address] | | | PATHOLOGY | [address] [...] | + + + + + | [facility] | [address] | [place] [address] | | | PATHOLOGY | [address] [...] | + + + + + | [facility] | [address] | [place] [address] | | | PATHOLOGY | [address] [...] DEPARTMENT OF | [address] | [place] [address] | | | PATHOLOGY | [address] [...] | + + + + + | [facility] | [address] | [place] [address] | | | PATHOLOGY | [address] [...] | + + + + + | [facility] | [address] | [place] [address] | | | PATHOLOGY | [address] [...] | + + + + + | [facility] | [address] | [place] [address] | | | PATHOLOGY | [address] [...] | + + + + + | [facility] | [address] | [place] [address] | | | PATHOLOGY | [address] [...] | + + + + + | [facility] | [address] | [place] [address] | | | PATHOLOGY | [address] [...] | + + + + + | [facility] | [address] | [place] [address] | | | PATHOLOGY | [address] [...] | + + + + + | [facility] | [address] | [place] [address] | | | PATHOLOGY | [address] [...] | + + + + + | [facility] | [address] | [place] [address] | | | PATHOLOGY | [address] [...] | + + + + + | [facility] | [address] | [place] [address] | | | PATHOLOGY | [address] [...] | + + + + + | [facility] | [address] | [place] [address] | | | PATHOLOGY | [address] [...] | + + + + + | [facility] | [address] | [place] [address] | | | PATHOLOGY | [address] [...] | + + + + + | [facility] | [address] | [place] [address] | | | PATHOLOGY | [address] [...] | + + + + + | [facility] | [address] | [place] [address] | | | PATHOLOGY | [address] [...] | + + + + + | [facility] | [address] | [place] [address] | | | PATHOLOGY | [address] [...] | + + + + + | [facility] | [address] | [place] [address] | | | PATHOLOGY | [address] [...] | + + + + + | [facility] | [address] | [place] [address] | | | PATHOLOGY | [address] [...] | + + + + + | [facility] | [address] | [place] [address] | | | PATHOLOGY | [address] [...] | + + + + + | [facility] | [address] | [place] [address] | | | PATHOLOGY | [address] [...] | + + + + + | [facility] | [address] | [place] [address] | | | PATHOLOGY | [address] [...] | + + + + + | [facility] | [address] | [place] [address] | | | PATHOLOGY | [address] [...] | + + + + + | [facility] | [address] | [place] [address] | | | PATHOLOGY | [address] [...] | + + + + + | [facility] | [address] | [place] [address] | | | PATHOLOGY | [address] [...] | + + + + + | [facility] | [address] | [place] [address] | | | PATHOLOGY | [address] [...] | + + + + + | [facility] | [address] | [place] [address] | | | PATHOLOGY | [address] [...] Re | | | | | | [address] | | | | + + + + + + + + | Specimen | + + | | + + + + + + + | Performing | Address | City/State/Zipcode | Phone Number | | Organization | | | | + + + + + | [facility] | [address] | [place] [address] | | | PATHOLOGY | [address] [...] | + + + + + | [facility] | [address] | [place] [address] | | | PATHOLOGY | [address] [...] | + + + + + | [facility] | [address] | [place] [address] | | | PATHOLOGY | [address] [...] | + + + + + | [facility] | [address] | [place] [address] | | | PATHOLOGY | [address] | | | + + + + + documented in this encounter Visit Diagnoses Not on filedocumented in this encounter
--- OUTSIDE RECORDS SUMMARY | ~2019-07-04 | XMS | Encounter Summary ---
Demographics + + + | Address | [address] | | | [place] [address] | + + + | Preferred Language | Unknown | + + + | Marital Status | Single | + + + | Taoism Affiliation | NON | + + + [...] [place], [place] | | | | | [address] | | + + + + + Care Team Providers + +------+ + | Care Pulvi Mixer Operator Name | Role | Phone | + +------+ + PCP | Unavailable | + +------+ + Encounter Details +--------+ + + + + | Date | Type | Department | Care Team | Description | +--------+ + + + + | 07/29/ | Results | | Other, Faculty | | | 1998 | Only | | [phone] | | +--------+ + + + + [...] | | + +---------+ + + | [facility] DEPARTMENT | | | | | RADIOLOGY [...] | | + +---------+ + + | [facility] DEPARTMENT OF | | | | [...] | | + +---------+ + + | [facility] DEPARTMENT OF | | | | [...] | | + +---------+ + + | [facility] DEPARTMENT OF | | | | [...] | | + +---------+ + + | [facility] DEPARTMENT OF | | | | [...] | | + +---------+ + + | [facility] DEPARTMENT OF | | | | [...] | | + +---------+ + + | [facility] DEPARTMENT OF | | | | [...] | | | | | | ACC# [id number], DONE ON | | | | | | 29-JUL-98 AT 10:15HAVE | | | | | | BEEN REPORTED ON | | | | | | THE:CHEST 1 PORTABLE, | | | | | | ACC# [id number], DONE ON | | | | | [...]
--- OUTSIDE RECORDS SUMMARY | ~2019-07-04 | XMS | Clinical Summary ---
Demographics + + + | Address | [address] | | | [place] [address] | + + + | Preferred Language | Unknown | + + + | Marital Status | Single | + + + | Yazidism Affiliation | NON | + + + [...] [place], [place] | | | | | [address] | | + + + + + Care Team Providers + +------+ + | Care Sports Equipment Repairer Name | Role | Phone | + +------+ + PCP | Unavailable | + +------+ + Source Comments YOUNG is fully live on both [facility] Ambulatory and [facility] InPatient.[facility] Allergies Not on File Medications Not on [...]
--- OUTSIDE RECORDS SUMMARY | 2019-07-04 12:02 | XMS ---
PreManage Notification: ESEQUIEL RAYO Security Living Advisor Events No recent Security Events currently on file CRITERIA MET - [facility] - 2 Visits in 30 Days CARE PROVIDERS KATHY HARDIN Psychiatry \T\ Neurology: Forensic Psychiatry [facility] PHONE: [phone] Vladiimr has no Care Guidelines for this patient. Maeve VISIT COUNT (12 MO.) 2 [facility] TOTAL 2 NOTE: Visits indicate total known visits. ED/UCC VISIT TRACKING (12 MO.) 07/04/2019 12:00 [facility] [place] TYPE: Emergency COMPLAINT: - ABDOMINAL PAIN 07/03/2019 16:33 [place] TYPE: Emergency COMPLAINT: - WORMS INPATIENT VISIT TRACKING (12 MO.) No inpatient visits to display in this time frame [email or web address]
== END 2019-07-04 15:12 | disposition home or self-care (01) ==
LOC: ED 11:59
DX: E86.0 Dehydration (principal); F22 Delusional disorders; F15.10 Other stimulant abuse, uncomplicated; F17.200 Nicotine dependence, unspecified, uncomplicated
CPT/HCPCS: 80053; 81001; 83690; 85025; 96374; 96375; 99284-25; J1200; J1790; J7030; J7121

== ENCOUNTER 2020-03-18 21:19 | Emergency (ER) | payer OTHER ==
[~2020-03-18] VITALS: Ht 172.7 cm; Wt 63.5 kg
[2020-03-18] MEDS ORDERED: IBU600 MG PO (22:05)
== END 2020-03-18 23:00 | disposition home or self-care (01) ==
LOC: ED 21:19
DX: S68.626A Partial traumatic transphalangeal amputation of right little finger, initial encounter (principal); W26.8XXA Contact with other sharp object(s), not elsewhere classified, initial encounter; F17.200 Nicotine dependence, unspecified, uncomplicated
CPT/HCPCS: 64450; 73140; 90471; 90714; 99283-25; A9270

== ENCOUNTER 2020-03-19 00:12 | Emergency (ER) | payer OTHER ==
[~2020-03-19 00:12] MED LIST: IBU600 MG PO
--- OUTSIDE RECORDS SUMMARY | 2020-03-19 00:14 | XMS ---
PreManage Notification: ESEQUIEL RAYO Security Patients Transporter Events No recent Security Events currently on file CRITERIA MET - [facility] - 2 Visits in 30 Days CARE PROVIDERS KATHY HARDIN Psychiatry \T\ Neurology: Forensic Psychiatry [facility] PHONE: [phone] Vladimir has no Care Guidelines for this patient. Maeve VISIT COUNT ([address] [facility] TOTAL 4 NOTE: Visits indicate total known visits. ED/C VISIT TRACKING (12 MO.) 03/19/2020 00:12 [facility] [place] TYPE: Emergency COMPLAINT: - MEDICAL CLEARANCE 03/18/2020 21:20 [facility] [place] TYPE: Emergency COMPLAINT: - RT HAND FINGER INJURY 07/04/2019 12:00 [facility] [place] TYPE: Emergency COMPLAINT: - ABDOMINAL PAIN DIAGNOSES: - Delusional disorders - Nicotine dependence, unspecified, uncomplicated - Dehydration - Unspecified abdominal pain - Other stimulant abuse, uncomplicated 07/03/2019 16:[address] [facility] [place] TYPE: Emergency COMPLAINT: - WORMS DIAGNOSES: - Delusional disorders - Paresthesia of skin - Delusional disorders - Nicotine dependence, unspecified, uncomplicated INPATIENT VISIT TRACKING (12 MO.) No inpatient visits to display in this time frame [email or web address]
== END 2020-03-19 00:25 | disposition left against medical advice (07) ==
LOC: ED 00:12
DX: Z53.21 Procedure and treatment not carried out due to patient leaving prior to being seen by health care provider (principal)

== ENCOUNTER 2021-05-10 14:41 | Emergency (ER) | payer OTHER ==
[~2021-05-10] VITALS: Ht 172.7 cm; Wt 70.3 kg
[2021-05-10] MEDS ORDERED: IBU600 MG PO (15:34)
== END 2021-05-10 15:50 | disposition home or self-care (01) ==
LOC: ED 14:41
DX: S83.92XA Sprain of unspecified site of left knee, initial encounter (principal); F17.200 Nicotine dependence, unspecified, uncomplicated; W00.0XXA Fall on same level due to ice and snow, initial encounter
CPT/HCPCS: 73560; 99283-25; A9270

== ENCOUNTER 2023-11-16 07:17 | Emergency (ER) | payer OTHER ==
[~2023-11-16] VITALS: Ht 172.7 cm; Wt 77.4 kg
[2023-11-16] MEDS ORDERED: NAPROSYN500 MG PO (08:16)
[2023-11-16 08:34] VITALS: BP 120/83
== END 2023-11-16 08:30 | disposition home or self-care (01) ==
LOC: ED 07:17
DX: S83.92XA Sprain of unspecified site of left knee, initial encounter (principal); X50.1XXA Overexertion from prolonged static or awkward postures, initial encounter; Y93.39 Activity, other involving climbing, rappelling and jumping off; F17.200 Nicotine dependence, unspecified, uncomplicated
CPT/HCPCS: 73560; 99283

== ENCOUNTER 2024-09-06 18:25 | Emergency (ER) | payer OTHER ==
[~2024-09-06] VITALS: Ht 172.7 cm; Wt 74.0 kg
[~2024-09-06 18:25] MED LIST changes: +NAPROSYN500 MG PO
[2024-09-06 18:53] LABS: BASOPHILS 0.9 % (0.2-1.2); EOSINOPHILS 0 % (0.8-7.0); LYMPHOCYTES 19.2 % (21.8-53.1); MCH 30.3 PG (25.7-32.2); MCHC 33.8 g/dL (32.3-36.5); MCV 89.7 fL (79.0-92.2); MONOCYTES 6.5 % (5.3-12.2); NEUTROPHILS 73.2 % (34.0-67.9); RBC 4.58 M/uL (4.63-6.08)
[2024-09-06 19:18] LABS: ALCOHOL, MEDICAL <3 ng/dL (<3); ALT (SGPT) 28 U/L (14-59); AST (SGOT) 28 U/L (15-37); GLOMERULAR FILTRATION RATE,EST 125 mL/min (>60); PROTEIN, TOTAL 7.8 g/dL (6.4-8.2); TSH, 3RD GENERATION 1.023 uIU/mL (0.358-3.740); UREA NITROGEN 22 mg/dL (7-18)
[2024-09-07 07:11] LABS: BLOOD/HGB, URINE NEGATIVE (Negative); KETONE, URINE SMALL (Negative); LEUK ESTERASE, URINE NEGATIVE (negative); NITRITE, URINE NEGATIVE (negative)
[2024-09-07 07:25] LABS: AMPHETAMINES, URINE POSITIVE (NEGATIVE); BARBITURATES, URINE NEGATIVE (NEGATIVE); BENZODIAZEPINE, URINE NEGATIVE (NEGATIVE); CANNABINOID, URINE POSITIVE (NEGATIVE); COCAINE, URINE NEGATIVE (NEGATIVE); ECSTASY, URINE POSITIVE (NEGATIVE); FENTANYL, URINE NEGATIVE (NEGATIVE); METHADONE, URINE NEGATIVE (NEGATIVE); OPIATES, URINE NEGATIVE (NEGATIVE); OXYCODONE, URINE NEGATIVE (NEGATIVE); PHENCYCLIDINE, URINE NEGATIVE (NEGATIVE)
[2024-09-07] MEDS ORDERED: OLANZapine 10 MG TABDIS PO ONE (11:15)
[2024-09-07] MEDS ORDERED: LORazepam 1 MG TAB PO SCH (21:00)
[2024-09-07] MEDS ORDERED: QUETIAPINE FUMARATE 25 MG TAB PO SCH (21:00)
[2024-09-08] MEDS ORDERED: LORazepam 1 MG TAB ONE (11:27)
[2024-09-09 18:56] LABS: CORONAVIRUS COVID-19 AG NEGATIVE (NEGATIVE)
[2024-09-10] MEDS ORDERED: SIMETHICONE 80 MG CHEW PO PRN (20:30)
[2024-09-11 10:56] VITALS: BP 109/66
== END 2024-09-11 10:56 ==
LOC: ED 18:25
PROVIDERS: Emergency Medicine
DX: F15.129 Other stimulant abuse with intoxication, unspecified (principal); R45.850 Homicidal ideations; Z91.83 Wandering in diseases classified elsewhere; Z59.00 Homelessness unspecified; F17.200 Nicotine dependence, unspecified, uncomplicated
CPT/HCPCS: 36415; 80053; 80307; 81003; 84443; 85025; 99285; A9270; A9270-GY; G0480; Q3014